=== PATIENT | female | born 1935 | race Caucasian/White ===

== ENCOUNTER 2019-11-03 01:03 | Inpatient (IN) | payer OTHER ==
--- NOTE | 2019-10-28 08:15 | NUR ---
MESSAGE AND UPDATE LEFT ON DR. DUPONT'S ANSWERING SERVICE REGARDING LAB RESULTS
[~2019-11-03] VITALS: Ht 167.6 cm; Wt 83.4 kg
[2019-11-03] VITALS (56 sets, daily range): BP systolic 95–134; BP diastolic 43–79
[2019-11-03] MEDS ORDERED: NOREPINEPHRINE 8 MG/250ML KIT 250 ML IV ONE (02:28)
[2019-11-03] MEDS ORDERED: SODIUM CHLORIDE 0.9% 500 ML IV ONE ×2 (02:30)
[2019-11-03] MEDS: NOREPINEPHRINE 8 MG/250ML KIT 250 ML IV SCH ×5 (02:30→22:52)
[2019-11-03 02:35] LABS: Basophils # (auto) 0.1 10 ^3/uL (0-0.2); Basophils % (auto) 0.4 % (0.0-2.0); Eosinophils # (auto) 0.1 10 ^3/uL (0-0.8); Eosinophils % (auto) 0.7 % (0.0-7.0); Hematocrit 37.3 % (36.0-46.0); Hemoglobin 11.6 g/dL (12.2-16.2); Lymphocytes # (auto) 3.8 10 ^3/uL (0.4-5.4); Lymphocytes % (auto) 21.9 % (10.0-50.0); Mean Corpuscular Hgb Conc. 31.2 g/dL (32.0-36.0); Mean Corpuscular Volume 93.1 fL (80.0-100.0); Monocytes # (auto) 0.8 10 ^3/uL (0-1.3); Monocytes % (auto) 4.5 % (0.0-12.0); Neutrophils # (auto) 12.7 10 ^3/uL (1.6-8.6); Neutrophils % (auto) 72.5 % (37.0-80.0); Nucleated Red Blood Cells % 0.2 %; Platelet Count (auto) 176 10^3/uL (140-450); Red Cell Distribution Width 14.7 % (11.8-14.3); White Blood Cell 17.5 10^3/uL (4.4-10.8)
[2019-11-03 02:38] LABS: Chloride 101 mmol/L (98-107); Lipase 75 U/L (73-393); Potassium 3.1 mmol/L (3.5-5.1); Sodium 135 mmol/L (136-145)
[2019-11-03 02:40] LABS: Albumin 2.6 g/dL (3.4-5.0); Amylase 29 U/L (25-115); Anion Gap 15 (5-15); BUN/Creatinine Ratio 11.1; Blood Urea Nitrogen 16 mg/dL (7-18); Calcium 8.3 mg/dL (8.5-10.1); Carbon Dioxide 19 mmol/L (21-32); GFR African American 44 mL/min; GFR Non-African American 37 mL/min; Glucose 345 mg/dL (74-106); Magnesium 2.5 mg/dL (1.6-2.6)
[2019-11-03 02:43] LABS: Alanine Aminotransferase 14 U/L (13-56); Alkaline Phosphatase 67 U/L (45-117); Aspartate Aminotransferase 17 U/L (15-37); Bilirubin, Total 0.7 mg/dL (0.2-1.0); Total Protein 6.2 g/dL (6.4-8.2)
[2019-11-03 02:54] LABS: INR 1.09 (0.9-1.15); Partial Thromboplastin Time 24.9 sec (23.64-32.05)
[2019-11-03] MEDS ORDERED: MORPHINE SULF INJ 2 MG/ML SYRINGE 1ML IV ONE ×2 (03:00→18:15)
[2019-11-03] MEDS ORDERED: dilTIAZem 25 MG/5 ML VIAL IV ONE (03:00)
[2019-11-03] MEDS ORDERED: ONDANSETRON HCL 4 MG/2 ML VIAL ONE (03:00)
[2019-11-03] MEDS: SODIUM CHLORIDE 0.9% 1,000 ML IV SCH ×5 (03:00→17:00)
[2019-11-03] MEDS ORDERED: dilTIAZem 120MG ER CAP PO ONE (03:00)
[2019-11-03] MEDS ORDERED: ONDANSETRON HCL 4 MG/2 ML VIAL IV ONE (03:00)
[2019-11-03] MEDS ORDERED: cefTRIAXone 1GM/50ML D5W 50 ML IV ONE (05:15)
[2019-11-03] MEDS: DOPamine 1600MCG/ML D5W 250 ML IV SCH ×2 (06:25→23:31)
[2019-11-03] MEDS ORDERED: PHENYLEPHRINE IV 250 ML IV ONE ×2 (06:43→06:45)
[2019-11-03] MEDS ORDERED: ACETAMINOPHEN 325 MG TAB PO PRN (06:45)
[2019-11-03] MEDS ORDERED: NITROGLYCERIN 0.4 MG SL TAB SL PRN (06:45)
[2019-11-03] MEDS ORDERED: ALBUMIN 5% 250 ML IV ONE (06:45)
[2019-11-03] MEDS ORDERED: ONDANSETRON HCL 4 MG/2 ML VIAL IV PRN (06:45)
[2019-11-03] MEDS ORDERED: MORPHINE SULF INJ 2 MG/ML SYRINGE 1ML IV PRN (06:45)
[2019-11-03] MEDS ORDERED: TEMAZEPAM 15 MG CAP PO PRN (06:45)
[2019-11-03] MEDS ORDERED: POTASSIUM CHL 20MEQ/100ML 100 ML IV ONE (06:45)
[2019-11-03] MEDS ORDERED: DEXTROSE (50%) 50ML SYRG IV PRN (06:45)
[2019-11-03] MEDS: InsuLIN REG 1unit/0.01ml Soln (100units/ml) SC SCH ×4 (07:00→22:00)
[2019-11-03] MEDS: ACCU-CHEK COMFORT CURVE STRIP VI SCH ×4 (07:00→22:00)
[2019-11-03] MEDS ORDERED: AMIODARONE HCL 150 MG in D5W 5% 100 ML IV ONE (07:15)
[2019-11-03] MEDS ORDERED: AMIODARONE 450mg/250ml AE 250 ML IV SCH (07:21)
[2019-11-03] MEDS: cefTRIAXone 1GM/50ML D5W 50 ML IV SCH ×2 (08:59→10:07)
--- NOTE | 2019-11-03 09:20 | NUR ---
Admit to [facility] admitted to [facility] via gurney on radiology technician, and portable 02. Patient transferred to bed, connected to unit monitoring and oxygen, and weighed by bed scale. Patient oriented to Marizol Huertas, primary RN, unit, room, bed, and unit policies regarding patient care and visiting hours. All questions and concerns addressed, patient verbalized understanding.Bed in low position, call light in reach. Patient note dot have 2 IV to the left hand and left forearm. Left forearm IV patient is complaining that it is hurting, IV hard to flush and painful for patient. Will discontinue IV and adolfo Alvarez for PICC line or central line. Unable to run Amiodarone drip at this time as it is not compatible with vasopressors.
[2019-11-03] MEDS ORDERED: APIXABAN 2.5 MG TAB PO SCH (10:00)
--- NOTE | 2019-11-03 10:00 | NUR ---
DR SORIA ON UNIT AND INFORMED THAT PATIENT HAS POOR IV ACCESS. PER MD PATIENT IS DR DUPONT PATIENT, DR SORIA SIGNED CONSENT AND INFORMED DR DUPONT OF PATIENT STATUS AND NEED FOR ACCESS, DR DUPONT AGREED TO PICC LINE PLACEMENT.
--- NOTE | 2019-11-03 10:15 | NUR ---
PHYSICIAN OFFICE NURSE AT BEDSIDE FOR BILATERAL VENOUS ULTRASOUND.
--- NOTE | 2019-11-03 11:06 | NUR ---
POP SINGER AT BEDSIDE.
--- NOTE | 2019-11-03 11:25 | NUR ---
DR DUPONT AT BEDSIDE AND MADE AWARE OF PATIENT STATUS AND NEED FOR PICC LINE PLACEMENT. MD ALSO MADE AWARE OF PATIENT POTASSIUM OF 3.1 AND ONLY GIVEN 20MEQ IVPB AT THIS TIME. MD CALLED DR GATICA TO INFORM OF PATIENT CONSULT. PER MD PLACING NEPHROLOGY CONSULT WELL. ALL ORDERS NOTED IN CHART.
[2019-11-03] MEDS ORDERED: POTASSIUM CHL 20 Meq TABLET PO ONE (12:00)
--- NOTE | 2019-11-03 12:00 | NUR ---
PICC LINE NURSE AT BEDSIDE.
[2019-11-03 12:07] LABS: Hemoglobin 9.6 g/dL (12.2-16.2)
[2019-11-03 12:08] LABS: Hematocrit 30.8 % (36.0-46.0); Mean Corpuscular Hemoglobin 28.6 pg (28.0-32.0); Mean Corpuscular Hgb Conc. 31.1 g/dL (32.0-36.0); Mean Corpuscular Volume 92.1 fL (80.0-100.0); Platelet Count (auto) 196 10^3/uL (140-450); Red Blood Cells 3.34 10^6/uL (4.0-5.20); Red Cell Distribution Width 14.3 % (11.8-14.3)
[2019-11-03 12:12] LABS: White Blood Cell 30.4 10^3/uL (4.4-10.8)
[2019-11-03 12:13] LABS: Basophils % (manual) 0 (0.0-2.0); Blast Cells 0; Eosinophils % (manual) 0 (0-7); Metamyelocytes % 0; Myelocytes % 0; Promyelocytes % 0; Reactive Lymphocytes 0
[2019-11-03 12:14] LABS: BUN/Creatinine Ratio 10.9; Calcium 7.5 mg/dL (8.5-10.1); Magnesium 2.4 mg/dL (1.6-2.6); Potassium 3.4 mmol/L (3.5-5.1)
[2019-11-03 12:14] LABS: Urine Bacteria FEW /hpf (None Seen); Urine Blood 3+ /uL (Negative); Urine Mucus FEW (None Seen); Urine Specific Gravity 1.023 (1.001-1.035); Urine WBC 84 /hpf (0 - 5); Urine WBC Clumps PRESENT /hpf (None Seen)
[2019-11-03 12:15] LABS: Urine Hyaline Cast FEW /lpf (0 - 2)
[2019-11-03 12:17] LABS: Bilirubin, Total 0.3 mg/dL (0.2-1.0); Total Protein 6.1 g/dL (6.4-8.2)
[2019-11-03] MEDS ORDERED: LIDOCAINE 1% (LOCAL ANESTH.) PF 5ml SDV ID ONE (12:30)
--- NOTE | 2019-11-03 12:35 | NUR ---
PICC line placement Patient educated on need for PICC line placement. All risks and benefits explained and all questions and concerns addressed prior to procedure. Noted past medical history, discussed with Dr Becerra which extremity to access. We both agreed on the right upper extremity d/t left sided pacemaker. 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 NKDA. INR and Plt counts within acceptable range. 5 fr PICC line inserted via right brachial vein using [employer] US and Tip Location System. Sterile technique with maximum barrier precautions utilized. Blood return obtained from each of the 3 lumens and each flushed easily with NS using proper technique. PICC secured with Stat-lock; biodisc and occlusive dressing applied. Stat portable chest x-ray obtained for PICC tip placement. *Baseline Arm Circumference 31 cm. Internal length 38 cm. External length 0. PICC lot #[id number] Note:
[2019-11-03 12:37] LABS: Lactic Acid w/Reflex 6.4 mmol/L (0.4-2.0)
--- NOTE | 2019-11-03 13:05 | NUR ---
Okay to use PICC line Xray completed. Okay to use PICC line. Marizol LOUIS notified.
[2019-11-03 13:14] LABS: Band Neutrophils % (manual) 7; Lymphocytes % (manual) 5 (10.0-50.0); Monocytes % (manual) 3 (0-12)
--- NOTE | 2019-11-03 13:30 | NUR ---
AMIODARONE DRIP AMIODARONE DRIP STARTED AT THE 1MG/HR ORDERED PER PROTOCOL. WILL DECREASE TO 0.5MG PER PROTOCOL AT 1930 DUE TO BEING UNABLE TO RUN SINCE PATIENT ARRIVAL FROM ER DUE TO NO IV ACCESS. DR DUPONT AWARE
--- NOTE | 2019-11-03 13:47 | NUR ---
HEAD START DIRECTOR AT BEDSIDE FOR CAROTID ULTRASOUND.
--- NOTE | 2019-11-03 14:47 | NUR ---
LEFT MESSAGE FOR DR DUPONT TO INFORM OF PATIENTS WBC OF 30.4, AWAITING CALL BACK.
--- NOTE | 2019-11-03 14:54 | NUR ---
SPOKE TO DR DUPONT ABOUT PATIENTS WBC OF 30.4, PER MD START PATIENT ON VANCOMYCIN PER PHARMACY AND GIVE 1 GM IVPB NOW. ALL ORDERS NOTED IN CHART.
--- NOTE | 2019-11-03 15:25 | NUR ---
PATIENT BELONGINGS FAMILY DROPPED OFF PATIENTS IPHONE AND TABLET WITH EDI ARCHITECT.
[2019-11-03] MEDS ORDERED: VANCOMYCIN PER PHARMACY 0 MG IV SCH (15:30)
[2019-11-03] MEDS ORDERED: VANCOMYCIN 1GM/250ML 250 ML IV ONE (15:30)
[2019-11-03] MEDS ORDERED: METO25TA93 PO (15:38)
[2019-11-03] MEDS ORDERED: ATOR10TA52 PO (15:38)
[2019-11-03] MEDS ORDERED: FURO1TAB31 PO (15:38)
[2019-11-03] MEDS ORDERED: APIX2.5T PO (15:38)
[2019-11-03] MEDS ORDERED: CHOL20007 PO (15:38)
[2019-11-03] MEDS ORDERED: CYAN100L PO (15:38)
[2019-11-03] MEDS ORDERED: FLUO-126 PO (15:38)
[2019-11-03] MEDS ORDERED: DIGO0.12 PO (15:38)
--- NOTE | 2019-11-03 15:49 | NUR ---
PAGED DR DUPONT FOR PATIENTS COMPLAINT OF PAIN 9/10 IN ABDOMEN. AWAITING CALL BACK.
--- NOTE | 2019-11-03 15:51 | NUR ---
DR PRIEST AT BEDSIDE TO ASSESS PATIENT AND DISCUSS PLAN OF CARE. MD MADE AWARE OF PATIENTS CURRENT FLUIDS AND DRIPS AND POOR URINE OUTPUT. MD ASSESSED PATIENT AND RECOMMENDED BLADDER SCAN. BLADDER SCAN COMPLETED AND THERE IS APPROXIMATELY 100-160ML IN BLADDER, MD MADE AWARE. MD ORDERED TO REPLACE CLAY CATHETER WITH LAGER ONE, 18F CLAY PLACED BY SLOANE LOUIS PATIENT TOLERATED WELL, BUT MINIMAL URINE DRAINAGE. PER MD OBTAIN ABDOMINAL CT. ALL ORDERS NOTED IN CHART.
--- NOTE | 2019-11-03 16:00 | NUR ---
SPOKE TO DR DUPONT AND INFORMED THAT DR PRIEST IS AT BEDSIDE AND ORDERING ABDOMINAL CT, ORDERED NORCO 5/325 Q4HR PRN FOR PAIN. ALL ORDERS NOTED IN CHART.
--- NOTE | 2019-11-03 16:40 | NUR ---
REPORT GIVEN TO SLOANE RN TO ASSUME CARE OF PATIENTS.
--- NOTE | 2019-11-03 16:45 | NUR ---
ASSESSMENT RECEIVED PATIENT'S REPORT FROM YAS LOUIS. PATIENT IS AWAKE ALERT AND ORIENTED. MOVES ALL EXTREMITIES. PUPILS ARE EQUAL AND REACTIVE. ABDOMEN IS DISTENDED.PATIENT SAID "I FEEL LIKE I NEED TO PEE". PATIENT IS OLIGURIC. YAN AWARE. CATHETER CHECKED FOR PATENCY. IT IS PATENT AND DRAINING WITH CLOUDY YELLOW URINE. WILL TAKE PATIENT CT ABDOMEN. PATIENT IS ON LEVOPHED 26 MCG/MIN AND AMIODARONE 1MG/MIN INFUSING THROUGH RT.UPPER PICC LINE.
--- NOTE | 2019-11-03 17:00 | NUR ---
PATIENT IS TAKEN FOR CT ABD/PELVIS .CONNECTED TO LIFE SCIENTIST AND OXYGEN.
--- NOTE | 2019-11-03 17:22 | NUR ---
PATIENT IS BACK FROM CT. VITAL SIGNS ARE STABLE.
[2019-11-03] MEDS ORDERED: HYDROcodone-ACET 5/325MG TAB ONE (17:36)
[2019-11-03] MEDS: PIPERACILLIN-TAZOB 2.25GM 50 ML IV SCH (17:59)
--- NOTE | 2019-11-03 18:05 | NUR ---
RECEIVED PHONE CALL FROM RONNIE SCHMIDT. SHE WANTS TO TALK TO . Addendum: 11/03/19 at 2136 by Farzad King RN RONNIE SEALS
[2019-11-03] MEDS ORDERED: MORPHINE SULF INJ 2 MG/ML SYRINGE 1ML ONE (18:09)
--- NOTE | 2019-11-03 18:10 | NUR ---
CALLED BACK. INFORMED THE REASON FOR CALL AND GAVE 'S NUMBER.
--- NOTE | 2019-11-03 18:15 | NUR ---
RECEIVED PHONE CALL FROM . MD ORDERED TO CONSULT STAT, TYPE AND CROSS MATCH 4 UNITS PRBC AND KEEP PATIENT NPO. 'S CELL NUMBER AND PATIENT'S GRAND SON CLARICE'S CELL NUMBER ARE GIVEN TO .
--- NOTE | 2019-11-03 18:25 | NUR ---
PAGED REGARDING CONSULT.
--- NOTE | 2019-11-03 18:35 | NUR ---
CALL BACK ORDERED TO DO STAT CBC, PT&PTT, GIVE 2 UNITS FFP, 1 PLATELET AND THEN REPEAT CBC AND PT&PTT. CALL MD WITH RESULTS.
[2019-11-03] MEDS: AMIODARONE 450mg/250ml AE 250 ML IV SCH ×2 (19:30→22:51)
--- NOTE | 2019-11-03 20:00 | NUR ---
RECIEVED PT AWAKE AND ALERT ON 2LNC, SAO2 97-98%, TACHYPNEIC 28-30, PT C/O OF SHOOTING TYPE PAIN IN HER ABDOMEN ABOUT "EVERY 5 MIN" ABD ROUND SOFT AND "TENDER" OFFERED PAIN MED FOR COMFORT, PT STATES "I DONT NEED ANYTHING RIGHT NOW" PT CALM, U/O LOW, RIHT UPPER ARM PICC LINE INFUSING LEVOPHED GTT AT 22MCG/MIN , LABS SENT FOR T&C CBC PTPTT, SEE INTERVENTIONS FOR HEAD TO TOE ASSESSMENT AND VITAL SIGNS
[2019-11-03 20:03] LABS: Basophils # (auto) 0.1 10 ^3/uL (0-0.2); Basophils % (auto) 0.4 % (0.0-2.0); Eosinophils # (auto) 0 10 ^3/uL (0-0.8); Monocytes # (auto) 1.4 10 ^3/uL (0-1.3); Red Cell Distribution Width 14.2 % (11.8-14.3)
[2019-11-03 20:04] LABS: Hematocrit 25.1 % (36.0-46.0); Lymphocytes # (auto) 1.2 10 ^3/uL (0.4-5.4); Lymphocytes % (auto) 5.4 % (10.0-50.0); Mean Corpuscular Hemoglobin 28.8 pg (28.0-32.0); Mean Corpuscular Hgb Conc. 31.7 g/dL (32.0-36.0); Mean Corpuscular Volume 90.8 fL (80.0-100.0); Monocytes % (auto) 6.5 % (0.0-12.0); Neutrophils # (auto) 19.3 10 ^3/uL (1.6-8.6); Neutrophils % (auto) 87.7 % (37.0-80.0); Platelet Count (auto) 174 10^3/uL (140-450); Red Blood Cells 2.77 10^6/uL (4.0-5.20)
[2019-11-03 20:11] LABS: INR 1.11 (0.9-1.15); Partial Thromboplastin Time 28.4 sec (23.64-32.05)
[2019-11-03] MEDS: SODIUM CHLOR 0.9% PF (SALINE LOCK) 10ML VIAL/SYR IV SCH (22:00)
--- NOTE | 2019-11-03 22:40 | NUR ---
1ST UNIT FFP (303ML) HUNG
--- NOTE | 2019-11-03 23:30 | NUR ---
2ND UNIT FFP (321ML) HUNG
[2019-11-04] VITALS (101 sets, daily range): BP systolic 74–139; BP diastolic 33–80
--- NOTE | 2019-11-04 00:50 | NUR ---
NORCO5/325 PO GIVEN FOR C/O HEADACHE AND ABDOMINAL SHOOTING PAINS SCALE #7
[2019-11-04] MEDS: HYDROcodone-ACET 5/325MG TAB PO PRN (00:52)
--- NOTE | 2019-11-04 01:30 | NUR ---
PT FELL ASLEEP
[2019-11-04] MEDS: SODIUM CHLORIDE 0.9% 1,000 ML IV SCH ×3 (02:45→22:45)
--- NOTE | 2019-11-04 02:45 | NUR ---
RECIEVED CALL FRM DR. DUPONT, ORDERS RECIEVED TO GIVE LASIX 20 MG IV X 1 , AND TO GIVE 1 PRBC IF AM HB IS < 8.O
[2019-11-04] MEDS ORDERED: FUROSEMIDE 20 MG/2 ML VIAL ONE (03:05)
[2019-11-04] MEDS ORDERED: FUROSEMIDE 20 MG/2 ML VIAL IV ONE (03:15)
--- NOTE | 2019-11-04 05:30 | NUR ---
PT HAD EPISODE OF 50 ML GREEN LIQ EMESIS. ZOFRAN 4MG IV WITH RELIEF
[2019-11-04] MEDS: PIPERACILLIN-TAZOB 2.25GM 50 ML IV SCH ×4 (06:40→20:34)
[2019-11-04 06:50] LABS: Basophils # (auto) 0.1 10 ^3/uL (0-0.2); Eosinophils # (auto) 0 10 ^3/uL (0-0.8); Monocytes # (auto) 1.4 10 ^3/uL (0-1.3)
[2019-11-04 06:52] LABS: Basophils % (auto) 0.6 % (0.0-2.0); Eosinophils % (auto) 0.1 % (0.0-7.0); Hematocrit 18.7 % (36.0-46.0); Lymphocytes # (auto) 0.8 10 ^3/uL (0.4-5.4); Lymphocytes % (auto) 4.4 % (10.0-50.0); Mean Corpuscular Hgb Conc. 32.2 g/dL (32.0-36.0); Mean Corpuscular Volume 90.1 fL (80.0-100.0); Monocytes % (auto) 8.3 % (0.0-12.0); Neutrophils # (auto) 14.7 10 ^3/uL (1.6-8.6); Neutrophils % (auto) 86.6 % (37.0-80.0); Platelet Count (auto) 199 10^3/uL (140-450); Red Blood Cells 2.08 10^6/uL (4.0-5.20); White Blood Cell 16.9 10^3/uL (4.4-10.8)
[2019-11-04] MEDS: InsuLIN REG 1unit/0.01ml Soln (100units/ml) SC SCH ×4 (07:00→21:47)
[2019-11-04 07:11] LABS: Potassium 3.6 mmol/L (3.5-5.1)
[2019-11-04 07:14] LABS: Albumin 2.7 g/dL (3.4-5.0); BUN/Creatinine Ratio 13.3; Calcium 6.6 mg/dL (8.5-10.1)
[2019-11-04 07:19] LABS: Bilirubin, Total 0.4 mg/dL (0.2-1.0); Total Protein 5.3 g/dL (6.4-8.2)
[2019-11-04] MEDS: NOREPINEPHRINE 8 MG/250ML KIT 250 ML IV SCH (07:31)
--- NOTE | 2019-11-04 07:45 | NUR ---
HB 6.0 0615 DRAW, 1 UNIT PRBC HUNG ORDERED, REPORT GIVEN TO [facility] NURSE ZORAIDA RN
[2019-11-04 07:50] LABS: INR 1.07 (0.9-1.15); Partial Thromboplastin Time 25.5 sec (23.64-32.05)
[2019-11-04] MEDS: ACCU-CHEK COMFORT CURVE STRIP VI SCH ×4 (09:18→21:47)
--- NOTE | 2019-11-04 09:24 | NUR ---
NOTIFIED DR. SMITH OF AM LABS S/P BLOOD TRANSFUSIONS AND PLT TRANSFUSION. UPDATED ON PT'S LATEST VITAL SIGNS WITH LEVOPHED AT 14 MCG/MIN. HR WITH A PACE MAKER. ASKED IF PT HAD BEEN EVALUATED BY EXERCISE SPECIALIST. I TOLD HIM SHE HAS A CARDIAC CONSULTATION BUT SHE STILL HAS NOT BEEN SEEN BY EXERCISE SPECIALIST. HE WANTS PT TO BE CLEARED FOR SURGERY RIGHT AWAY.
--- NOTE | 2019-11-04 09:30 | NUR ---
I CALLED DR. GATICA AND I NOTIFIED HIM OF STAT CONSULTATION NEED AND CLEARANCE NEEDED FOR SURGERY. MD. STATED HE NEEDED ECHO DONE STAT, SO HE COULD READ IT AND HE NEEDED TO HAVE PT ADDED TO HIS LIST. I ADDED CONSULT TO THE COMPUTER, SO MD CAN HAVE ACCESS TO THE PT. MD ALREADY AWARE OF CONSULTATION.
--- NOTE | 2019-11-04 10:30 | NUR ---
DR. RODRIGUEZ IN TO DO CARDIAC CLEARANCE FOR PT TO GO TO OR.
--- NOTE | 2019-11-04 10:35 | NUR ---
DR. SHAIKHCL IN TO SEE PT. HE SPOKE TO PT AND EXPLAINED TO PT WHAT TO EXPECT DURING SURGERY, POSSIBLE COMPLICATIONS. PT AGREED TO PROCEED WITH SURGERY. NEW ORDERS RECEIVED.
--- NOTE | 2019-11-04 11:45 | NUR ---
PT TAKEN TO SURGERY BY OR CREW.
[2019-11-04] MEDS: AMIODARONE 450mg/250ml AE 250 ML IV SCH ×2 (11:50→19:21)
[2019-11-04] MEDS ORDERED: SUCCINYLCHOLINE CHLORIDE 20 MG/ML 10ML VIAL IV ONE (11:58)
[2019-11-04] MEDS ORDERED: HYDROmorphone HCL 2 MG/ML VL ONE (11:59)
[2019-11-04] MEDS ORDERED: MIDAZOLAM HCL 1MG/1ML-2 ML VIAL ONE ×3 (11:59→13:19)
[2019-11-04] MEDS ORDERED: fentaNYL CITRATE 100 MCG/2 ML VL ONE (11:59)
[2019-11-04] MEDS ORDERED: fentaNYL CITRATE 5 ML ONE (11:59)
[2019-11-04] MEDS: SODIUM CHLOR 0.9% PF (SALINE LOCK) 10ML VIAL/SYR IV SCH ×2 (12:03→21:47)
[2019-11-04] MEDS ORDERED: ceFAZolin 1GM/50ML 50 ML IV ONE (12:07)
--- NOTE | 2019-11-04 12:10 | NUR ---
I CALLED PT'S GRAND SON JENIFFER TO UPDATE HIM ON PT GOING TO SURGERY SINCE PT DID NOT WANT TO TAKE PHONE CALLS FROM PT'S FAMILY BEFORE GOING TO SURGERY. HE SAID HE HAD JUST SPOKEN TO DR. SMITH ABOUT 15 MIN AGO TELLING HIM THAT HE WAS ABOUT TO TAKE HER BACK TO SURGERY.
[2019-11-04] MEDS ORDERED: PNEUMOCOCCAL VACC POLYS 25 MCG/0.5 ML VIAL IM ONE (12:15)
[2019-11-04] MEDS ORDERED: DexAMETHasone SOD PHOS 10MG/1ML VIAL INJ ONE (12:37)
[2019-11-04] MEDS ORDERED: MIDAZOLAM DRIP 50 mg/50mL 50 ML IV SCH (13:22)
--- NOTE | 2019-11-04 13:24 | NUR ---
PT CAME BACK FROM SURGERY S/P SPLENECTOMY PT NOW ON VENTILATOR, REMAINS PARALYZED FROM ANESTHESIA AND PARALYTICS THAT WERE USED DURING SURGERY. DR. YEPEZ WILL BE THE CONSULTING RATE ENGINEER WHOM HAPPENED TO BE AT BEDSIDE WHEN PT ARRIVED TO THE UNIT. ASSESSED PT AT THIS TIME AND RECEIVED REPORT FROM ANESTHESIOLOGIST AND GAVE US ORDERS FOR VENTILATOR MANAGEMENT.PT REMAINS ON LEVOPHED AND AMIODARONE GTT.
[2019-11-04] MEDS ORDERED: HYDROmorphone HCL 2 MG/ML VL IV PRN (13:30)
[2019-11-04] MEDS: MIDAZOLAM DRIP 50 mg/50mL 50 ML IV SCH ×2 (14:09→21:15)
[2019-11-04] MEDS ORDERED: fentaNYL Drip 2500mCg/250mlNS 250 ML IV ONE (14:14)
[2019-11-04 14:35] LABS: Hemoglobin 8.6 g/dL (12.2-16.2); Mean Corpuscular Hemoglobin 29.5 pg (28.0-32.0); Mean Corpuscular Hgb Conc. 33.1 g/dL (32.0-36.0); Mean Corpuscular Volume 89.2 fL (80.0-100.0); Platelet Count (auto) 175 10^3/uL (140-450); Red Blood Cells 2.92 10^6/uL (4.0-5.20); Red Cell Distribution Width 14.6 % (11.8-14.3); White Blood Cell 25.1 10^3/uL (4.4-10.8)
[2019-11-04 14:39] LABS: Band Neutrophils % (manual) 0; Basophils % (manual) 0 (0.0-2.0); Blast Cells 0; Eosinophils % (manual) 0 (0-7); Metamyelocytes % 0; Myelocytes % 0; Promyelocytes % 0; Reactive Lymphocytes 0
[2019-11-04] MEDS ORDERED: PROTHROMBIN COMPLEX CONCENTRAT 2,000 UNIT in STERILE WATER 80 ML IV ONE (15:00)
[2019-11-04 15:08] LABS: Lymphocytes % (manual) 1 (10.0-50.0); Monocytes % (manual) 1 (0-12)
[2019-11-04] MEDS: fentaNYL Drip 2500mCg/250mlNS 250 ML IV SCH (15:13)
[2019-11-04] MEDS: VANCOMYCIN 1GM/250ML 250 ML IV SCH (15:21)
[2019-11-04 15:29] LABS: Albumin 2.3 g/dL (3.4-5.0); Calcium 6.2 mg/dL (8.5-10.1); Potassium 3.5 mmol/L (3.5-5.1)
[2019-11-04] MEDS ORDERED: SODIUM BICARBONATE 8.4 % INJ 50ML VIAL IV ONE (15:30)
--- NOTE | 2019-11-04 15:30 | NUR ---
DR. PRIEST CALLED TO GET AN UPDATE ON PT'S CONDITION ESPECIALLY CURRENT URINE OUTPUT. I UPDATED MD ON PT'S CONDITION. IMPROVED UOP, IMPROVED BUN + CR, UOP ADEQUATE. MD WILL SEE PT TOMORROW.
[2019-11-04 15:34] LABS: BUN/Creatinine Ratio 13.8; Total Protein 4.8 g/dL (6.4-8.2)
[2019-11-04] MEDS: DOPamine 1600MCG/ML D5W 250 ML IV SCH (16:37)
--- NOTE | 2019-11-04 16:59 | NUR ---
I NOTIFIED DR. SMITH OF POST OP CBC RESULTS. WANTS PT TO RECEIVE 2 MORE UNITS OF PRBC'S.
[2019-11-04] MEDS ORDERED: ceFAZolin 1GM/50ML 50 ML IV SCH (18:00)
--- NOTE | 2019-11-04 18:06 | NUR ---
RT NOTE RECEIVED PT INTUBATED AND ON VENT V2 ON STATED SETTINGS. VENT IS PLUGGED INTO RED OUTLET. ALARMS ARE ON AND AUDIBLE AT NURSES STATION. AMBU BAG AT BEDSIDE AND CONNECTED TO O2. 7.5 ETT IS SECURED WITH ANCHORFAST AT 22CM TO THE ORAL RIGHT, MOVED TO THE CENTER. BILATERAL BS ARE CTA. PT WAS SUCTIONED FOR SCANT RETURN. RIGHT RADIAL ART LINE NOTED. PT APPEARS TO TOLERATE SETTINGS WELL. CONT ORDERED. POX 96% Addendum: 11/04/19 at 1911 by Dariana James RT Amended: Links added.
--- NOTE | 2019-11-04 20:40 | NUR ---
RT NOTE ROUTINE VENT CHECK DONE. PT INTUBATED AND ON VENT V2 ON STATED SETTINGS. VENT IS PLUGGED INTO RED OUTLET. ALARMS ARE ON AND AUDIBLE AT NURSES STATION. AMBU BAG AT BEDSIDE AND CONNECTED TO O2. 7.5 ETT IS SECURED WITH ANCHORFAST AT 22CM TO THE ORAL CENTER. RIGHT RADIAL ART LINE NOTED. PT APPEARS TO TOLERATE SETTINGS WELL. CONT ORDERED. POX 96% Addendum: 11/04/19 at 2056 by Dariana James RT Amended: Links added.
--- NOTE | 2019-11-04 22:35 | NUR ---
RT NOTE ROUTINE VENT CHECK DONE. PT INTUBATED AND ON VENT V2 ON STATED SETTINGS. VENT IS PLUGGED INTO RED OUTLET. ALARMS ARE ON AND AUDIBLE AT NURSES STATION. AMBU BAG AT BEDSIDE AND CONNECTED TO O2. 7.5 ETT IS SECURED WITH ANCHORFAST AT 22CM TO THE ORAL CENTER. RIGHT RADIAL ART LINE NOTED. PT APPEARS TO TOLERATE SETTINGS WELL. CONT ORDERED. POX 95% Addendum: 11/04/19 at 2242 by Dariana James RT Amended: Links added.
[2019-11-05] VITALS (104 sets, daily range): BP systolic 89–141; BP diastolic 39–78
--- NOTE | 2019-11-05 00:03 | NUR ---
RT NOTE ROUTINE VENT CHECK DONE. PT INTUBATED AND ON VENT V2 ON STATED SETTINGS. VENT IS PLUGGED INTO RED OUTLET. ALARMS ARE ON AND AUDIBLE AT NURSES STATION. AMBU BAG AT BEDSIDE AND CONNECTED TO O2. 7.5 ETT IS SECURED WITH ANCHORFAST AT 22CM TO THE ORAL CENTER. RIGHT RADIAL ART LINE NOTED. PT APPEARS TO TOLERATE SETTINGS WELL. PT WAS SUCTIONED FOR SCANT RETURN FROM ETT AND MODERATE RETURN ORALLY. CONT ORDERED. POX 95% Addendum: 11/05/19 at 0014 by Dariana James RT Amended: Links added.
[2019-11-05] MEDS: PIPERACILLIN-TAZOB 2.25GM 50 ML IV SCH ×3 (01:52→15:13)
[2019-11-05] MEDS: AMIODARONE 450mg/250ml AE 250 ML IV SCH ×2 (02:06→18:25)
--- NOTE | 2019-11-05 02:32 | NUR ---
RT NOTE ROUTINE VENT CHECK DONE. PT INTUBATED AND ON VENT V2 ON STATED SETTINGS. VENT IS PLUGGED INTO RED OUTLET. ALARMS ARE ON AND AUDIBLE AT NURSES STATION. AMBU BAG AT BEDSIDE AND CONNECTED TO O2. 7.5 ETT IS SECURED WITH ANCHORFAST AT 22CM TO THE ORAL CENTER. RIGHT RADIAL ART LINE NOTED. PT APPEARS TO TOLERATE SETTINGS WELL. CONT ORDERED. POX 93% Addendum: 11/05/19 at 0242 by Dariana James RT Amended: Links added.
--- NOTE | 2019-11-05 04:07 | NUR ---
RT NOTE ROUTINE VENT CHECK DONE. PT INTUBATED AND ON VENT V2 ON STATED SETTINGS. VENT IS PLUGGED INTO RED OUTLET. ALARMS ARE ON AND AUDIBLE AT NURSES STATION. AMBU BAG AT BEDSIDE AND CONNECTED TO O2. 7.5 ETT IS SECURED WITH ANCHORFAST AT 22CM TO THE ORAL CENTER. RIGHT RADIAL ART LINE NOTED. PT APPEARS TO TOLERATE SETTINGS WELL. PT SUCTIONED FOR SMALL RETURN. CONT ORDERED. POX 93% Addendum: 11/05/19 at 0516 by Dariana James RT Amended: Links added.
[2019-11-05 04:08] LABS: Basophils # (auto) 0.1 10 ^3/uL (0-0.2); Basophils % (auto) 0.7 % (0.0-2.0); Eosinophils # (auto) 0 10 ^3/uL (0-0.8); Hematocrit 30.3 % (36.0-46.0); Lymphocytes # (auto) 0.4 10 ^3/uL (0.4-5.4); Lymphocytes % (auto) 2.6 % (10.0-50.0); Mean Corpuscular Hemoglobin 29.2 pg (28.0-32.0); Mean Corpuscular Volume 88.5 fL (80.0-100.0); Monocytes # (auto) 0.7 10 ^3/uL (0-1.3); Monocytes % (auto) 4.2 % (0.0-12.0); Neutrophils # (auto) 15.7 10 ^3/uL (1.6-8.6); Neutrophils % (auto) 92.5 % (37.0-80.0); Nucleated Red Blood Cells % 0.3 %; Platelet Count (auto) 138 10^3/uL (140-450); Red Blood Cells 3.43 10^6/uL (4.0-5.20); Red Cell Distribution Width 14.6 % (11.8-14.3)
[2019-11-05] MEDS: SODIUM CHLORIDE 0.9% 1,000 ML IV SCH (04:26)
[2019-11-05] MEDS: NOREPINEPHRINE 8 MG/250ML KIT 250 ML IV SCH ×3 (04:34→21:54)
[2019-11-05 04:35] LABS: Potassium 3.2 mmol/L (3.5-5.1)
[2019-11-05 04:36] LABS: INR 1.03 (0.9-1.15); Partial Thromboplastin Time 25.2 sec (23.64-32.05)
[2019-11-05 04:41] LABS: Albumin 2.1 g/dL (3.4-5.0); Calcium 6.2 mg/dL (8.5-10.1); Magnesium 1.7 mg/dL (1.6-2.6)
[2019-11-05 04:45] LABS: Bilirubin, Total 0.7 mg/dL (0.2-1.0); Total Protein 4.6 g/dL (6.4-8.2)
[2019-11-05] MEDS: ACCU-CHEK COMFORT CURVE STRIP VI SCH ×4 (06:20→21:46)
[2019-11-05] MEDS: InsuLIN REG 1unit/0.01ml Soln (100units/ml) SC SCH ×4 (06:20→21:46)
--- NOTE | 2019-11-05 08:58 | NUR ---
RECEIVED CALL FOR DR YEPEZ - GIVEN CXR REPORT FROM THIS AM - STATES TO PROCEED WITH CPAP TRIAL RT NOTIFIED. VERSED STOPPED.
[2019-11-05] MEDS: DOPamine 1600MCG/ML D5W 250 ML IV SCH ×2 (09:43→21:53)
[2019-11-05] MEDS ORDERED: NOREPINEPHRINE 8 MG/250ML KIT 250 ML IV SCH (09:49)
[2019-11-05] MEDS ORDERED: SODIUM CHLORIDE 0.9% 1,000 ML IV ONE (10:00)
--- NOTE | 2019-11-05 10:15 | NUR ---
PT ABLE TO FOLLOW COMMANDS BUT NOT ALERT AND NOT OPENING EYES, STILL GROGGY AND LETHARGIC. NO SPONTANEOUS BREATHS, WHEN SPONTANEOUS BREATHING TRIAL IS INITIATED, PT STILL APNEIC. PT REMAINS ON AC MODE, WILL WAIT UNTIL PT IS MORE AWAKE/ALERT.
[2019-11-05] MEDS ORDERED: SODIUM BICARBONATE 8.4 % INJ 50ML VIAL IV ONE (10:30)
[2019-11-05] MEDS ORDERED: FUROSEMIDE 20 MG/2 ML VIAL IV ONE (10:30)
[2019-11-05] MEDS: PANTOPRAZOLE 40 MG/10 ML VIAL INJ IV SCH (10:39)
[2019-11-05] MEDS: SODIUM CHLOR 0.9% PF (SALINE LOCK) 10ML VIAL/SYR IV SCH ×2 (10:41→20:02)
--- NOTE | 2019-11-05 10:45 | NUR ---
PATIENT'S GRANDSON PHONES - GIVEN UPDATE ON POC - VERBALIZES UNDERSTANDING.
[2019-11-05] MEDS: VANCOMYCIN 1GM/250ML 250 ML IV SCH (11:00)
--- NOTE | 2019-11-05 11:00 | NUR ---
DR DUPONT VISITS AND EXAMINES PATIENT - NO NEW ORDERS RECEIVED.
--- NOTE | 2019-11-05 13:35 | NUR ---
PATIENT'S GRANDSON PHONES - UPDATED ON POC AND CURRENT CONDITION - VERBALIZES UNDERSANDING.
--- NOTE | 2019-11-05 13:40 | NUR ---
DR RORDIGUEZ VISITS AND EXAMINES PATIENT - ORDERS RECEIVED.
--- NOTE | 2019-11-05 13:40 | NUR ---
CPAP TRIAL PT AWAKE AND ABLE TO FOLLOW SIMPLE COMMANDS. INITIATED CPAP TRIAL ORDERED, PT TOLERATING WELL. BREATH SOUNDS CLEAR/DIM, SUCTIONED FOR SMALL THIN CLEAR SECRETIONS. ALARMS SET AND AUDIBLE. ABG AND WEANING PARAMETERS TO FOLLOW IN ONE HOUR. NOTIFIED RN OF CHANGES.
[2019-11-05] MEDS: fentaNYL Drip 2500mCg/250mlNS 250 ML IV SCH (14:58)
--- NOTE | 2019-11-05 15:05 | NUR ---
ENDED CPAP TRIAL CPAP ABG REVIEWED - RESPIRATORY ACIDOSIS, STILL WEAK WITH WEANING PARAMETERS NOTED: NIF -23, VC 590ML, RSBI 25, LEAK 50ML. ENDED SPONTANEOUS BREATHING TRIAL AND PLACED PT BACK ON AC MODE ON PREVIOUS SETTINGS. PT TOLERATING CHANGES WELL. NOTIFIED RN OF CHANGES. ALARMS VERIFIED AND AUDIBLE. WILL CONTINUE TO MONITOR.
[2019-11-05 15:53] LABS: Anion Gap 6 (5-15); BUN/Creatinine Ratio 13.7; Blood Urea Nitrogen 10 mg/dL (7-18); Carbon Dioxide 21 mmol/L (21-32); Chloride 114 mmol/L (98-107); GFR African American 97 mL/min; GFR Non-African American 80 mL/min; Glucose 206 mg/dL (74-106); Magnesium 1.5 mg/dL (1.6-2.6); Sodium 141 mmol/L (136-145)
[2019-11-05 16:14] LABS: Calcium 5.3 mg/dL (8.5-10.1); Potassium 2.7 mmol/L (3.5-5.1)
--- NOTE | 2019-11-05 16:15 | NUR ---
NOTIFIED PER LAB OF CRITICAL VALUES K+ 2.7 AND CA 5.3
[2019-11-05] MEDS: POTASSIUM CHL 20MEQ/100ML 100 ML IV SCH ×2 (16:16→18:22)
[2019-11-05] MEDS ORDERED: SOD CHL 0.9%/ KCL 20MEQ 1,000 ML IV SCH (16:45)
--- NOTE | 2019-11-05 16:45 | NUR ---
CALLED DR YEPEZ WITH RESULTS OF CPAP TRIAL. ORDERS RECEIVED FOR BASELINE AM ABG TOMORROW MORNING, AND CPAP TRIAL TOMORROW WHEN PT IS AWAKE/ALERT. NOTIFIED RN. WILL ENDORSE TO ONCOMING THERAPIST.
--- NOTE | 2019-11-05 16:45 | NUR ---
DR DUPONT RETURNS CALL - INFORMED OF CRITICAL LABS - ORDERS RECEIVED.
[2019-11-05] MEDS ORDERED: MAGNESIUM SULFATE 1GM/100ML 100 ML IV SCH (17:00)
[2019-11-05] MEDS: SOD CHL 0.9%/ KCL 20MEQ 1,000 ML IV SCH (17:17)
--- NOTE | 2019-11-05 18:21 | NUR ---
Respiratory note: RECEIVED PT ON VENT V2, VENT CONNECTED TO RED OUTLET AND O2 SOURCE. ALARMS ARE SET AND AUDIBLE. AMBU BAG AND MASK AT BEDSIDE. BS ARE FINE COURSE SXD VIA ETT FOR SCANT THIN CLEAR.GAG INTACT. ETT SECURED AT 22CM AT THE LIP VIA HOLISTER. RN CRISTHIAN AT BEDSIDE. RT NAME AND PAGER ASSIGNMENT WRITTEN ON PTS ROOM BOARD. WILL CONTINUE TO MONITOR Q2H.
[2019-11-05 19:38] LABS: Basophils # (auto) 0 10 ^3/uL (0-0.2); Basophils % (auto) 0.1 % (0.0-2.0); Eosinophils # (auto) 0 10 ^3/uL (0-0.8); Hematocrit 29.2 % (36.0-46.0); Hemoglobin 9.7 g/dL (12.2-16.2); Lymphocytes # (auto) 0.5 10 ^3/uL (0.4-5.4); Lymphocytes % (auto) 2.6 % (10.0-50.0); Mean Corpuscular Hemoglobin 28.9 pg (28.0-32.0); Mean Corpuscular Hgb Conc. 33.1 g/dL (32.0-36.0); Mean Corpuscular Volume 87.3 fL (80.0-100.0); Monocytes # (auto) 1.2 10 ^3/uL (0-1.3); Monocytes % (auto) 6.9 % (0.0-12.0); Neutrophils # (auto) 15.7 10 ^3/uL (1.6-8.6); Neutrophils % (auto) 90.4 % (37.0-80.0); Nucleated Red Blood Cells % 0.4 %; Platelet Count (auto) 72 10^3/uL (140-450); Red Blood Cells 3.35 10^6/uL (4.0-5.20); Red Cell Distribution Width 15.1 % (11.8-14.3); White Blood Cell 17.4 10^3/uL (4.4-10.8)
--- NOTE | 2019-11-05 20:00 | NUR ---
SHIFT OPENING NOTE RECEIVED PATIENT AWAKE, FOLLOWS COMMANDS AND IS APPROPRIATE ON A VENTILATOR WITH LIGHT SEDATION. VENT SETTINGS AC 14, TV 500, FI02 35, PEEP 5 ETT SIZE 7.5, 22 AT THE LIP. NG TUBE TO LEFT NARES TO LIS WITH GREENISH BROWN OUTPUT. ABDOMINAL DRESSINGS ARE CLEAN, DRY AND INTACT. ESTUARDO TUBE TO LEFT ABDOMEN WITH DARK RED OUTPUT. CLAY CATH DRAINING YELLOW URINE WITH SEDIMENT TO GRAVITY. LETICIA PICC INFUSING LEVOPHED AT 8, AMIO AT 0.5, FENT AT 25, NS 20KCL AT 100ML/H. RIGHT FEMORAL TLC SALINE LOCKED. PHYSICAL ASSESSMENT COMPLETED, SEE INTERVENTIONS. INSTRUCTED ON POC AND TO CALL FOR ASSIST NEEDED. BED IS IN THE LOWEST POSITION WITH SIDE RAILS UP X2, CALL LIGHT IS WITHIN REACH.
[2019-11-05] MEDS: PIPERACILLIN-TAZOB 3.375GM 100 ML IV SCH (20:01)
[2019-11-05] MEDS: MAGNESIUM SULFATE 1GM/100ML 100 ML IV SCH ×2 (20:02→21:47)
[2019-11-05 21:51] LABS: Hemoglobin 9.2 g/dL (12.2-16.2)
[2019-11-06] VITALS (103 sets, daily range): BP systolic 89–295; BP diastolic 33–285
[2019-11-06] MEDS: SOD CHL 0.9%/ KCL 20MEQ 1,000 ML IV SCH ×3 (03:00→23:00)
[2019-11-06] MEDS: PIPERACILLIN-TAZOB 3.375GM 100 ML IV SCH ×4 (03:29→20:24)
[2019-11-06 03:38] LABS: Basophils # (auto) 0 10 ^3/uL (0-0.2); Basophils % (auto) 0.3 % (0.0-2.0); Eosinophils # (auto) 0 10 ^3/uL (0-0.8); Hemoglobin 8.8 g/dL (12.2-16.2); Lymphocytes # (auto) 0.5 10 ^3/uL (0.4-5.4); Mean Corpuscular Hemoglobin 29.7 pg (28.0-32.0); Mean Corpuscular Hgb Conc. 33.7 g/dL (32.0-36.0); Mean Corpuscular Volume 88.2 fL (80.0-100.0); Monocytes # (auto) 1.2 10 ^3/uL (0-1.3); Monocytes % (auto) 7.4 % (0.0-12.0); Neutrophils % (auto) 89.3 % (37.0-80.0); Nucleated Red Blood Cells % 0.5 %; Platelet Count (auto) 156 10^3/uL (140-450); Red Blood Cells 2.95 10^6/uL (4.0-5.20); Red Cell Distribution Width 15.2 % (11.8-14.3); White Blood Cell 16.8 10^3/uL (4.4-10.8)
[2019-11-06 03:53] LABS: Calcium 6.5 mg/dL (8.5-10.1); Magnesium 2.4 mg/dL (1.6-2.6); Potassium 4.1 mmol/L (3.5-5.1)
[2019-11-06 03:55] LABS: BUN/Creatinine Ratio 13.8
--- NOTE | 2019-11-06 04:25 | NUR ---
MORNING HYGIENE CARE FULL BED BATH PERFORMED WITH WARM SOAPY WASH CLOTHES AND CHG WIPES. GOWN CHANGED. PARTIAL LINEN CHANGED. PATIENT REPOSITIONED FOR COMFORT. TOLERATED IT WELL.
[2019-11-06] MEDS: ACCU-CHEK COMFORT CURVE STRIP VI SCH ×4 (06:04→21:41)
[2019-11-06] MEDS: InsuLIN REG 1unit/0.01ml Soln (100units/ml) SC SCH ×4 (06:04→21:41)
--- NOTE | 2019-11-06 06:11 | NUR ---
Respiratory note: RECEIVED PATIENT ON V2 V200 VENT ORALLY INTUBATED WITH A 7.5 ETT SECURED VIA SIDRA AT THE 22CM MARKING AT THE LIP, AND MECHANICALLY VENTILATED WITH THE CHARTED SETTINGS. SPO2 95%, LUNG SOUNDS CLEAR/DIM T/O, NO SECRETIONS WHEN SUCTIONED. SKIN IS WARM/DRY TO THE TOUCH AND IS INTACT NEAR SIDRA SITE. THERE IS A NGT IN THE LEFT NARE, AND A PICC LINE PLACED IN THE RIGHT ARM. PITTING EDEMA NOTED IN BILATERAL UPPER AND LOWER EXTREMITIES. NO NEW CXR TO ASSESS. PATIENT IS AWAKE, ALERT, ORIENTED, AND FOLLOWING COMMANDS, AND IS SEDATED ON A FENTANYL DRIP. SHE IS RESTING COMFORTABLY AND TOLERATING VENT WELL, NO CHANGES MADE. VENT PLUGGED INTO RED OUTLET AND ALL ALARMS ARE SET AND AUDIBLE. WILL CONTINUE TO ASSESS PATIENT WELL VENTILATOR FUNCTION.
--- NOTE | 2019-11-06 07:15 | NUR ---
END OF SHIFT REPORT GIVEN AND CARE ENDORSED TO CRISTHIAN LOUIS.
--- NOTE | 2019-11-06 08:25 | NUR ---
CALL PLACED TO DR DUPONT RE: HGB 8.8 FROM 10.0 YESTERDAY.
--- NOTE | 2019-11-06 08:35 | NUR ---
Respiratory note: PATIENT PLACED ON CPAP FOR WEANING TRIAL AT THIS TIME. SHE IS TOLERATING WELL AND GIVING GREAT SPONTANEOUS EFFORT. WILL CONTINUE TO MONITOR CLOSELY WHILE ON CPAP. RN CRISTHIAN AT BEDSIDE AND AWARE OF VENT MODE CHANGE. VT: 482 RR: 16 HR: 83 SPO2: 95% BP: 138/69
--- NOTE | 2019-11-06 08:55 | NUR ---
PLACED SECOND CALL TO DR Alok RODRIGUES RE: HGRita 7.1 Addendum: 11/06/19 at 0909 by Theresa Castañeda RN ERROR WRONG CHART
--- NOTE | 2019-11-06 09:13 | NUR ---
DR SMITH VISITS - UPDATED ON PATIENT CONDITION - NO NEW ORDERS RECEIVED. PATIENT TOLERATING CPAP TRIAL WELL.
--- NOTE | 2019-11-06 09:50 | NUR ---
Respiratory note: PATIENT EXTUBATED AT THIS TIME POST POSITIVE CPAP TRIAL, WEANING PARAMETERS, AND ABG PER DR. YEPEZ'S VERBAL ORDER. PATIENT WAS PLACED ON 34% COOL AEROSOL WITH SPO2 MAINTAINING AT 94%, NO STRIDOR WAS HEARD, AND PATIENT HAD NO COMPLAINTS OF ANY SOB OR DIFF BREATHING. RN CRISTHIAN AWARE OF EXTUBATION. NIF: -22 FVC: 1030 RSBI: 45
--- NOTE | 2019-11-06 10:00 | NUR ---
RBC UNIT STARTED - WILL MONITOR FOR S/S TRANSFUSION REACTION.
--- NOTE | 2019-11-06 10:05 | NUR ---
DR YEPEZ VISITS AND EXAMINES PATIENT - NO NEW ORDERS RECEIVED.
--- NOTE | 2019-11-06 10:10 | NUR ---
DR RODRIGUEZ VISITS AND EXAMINES PATIENT - NO NEW ORDERS RECEIVED.
--- NOTE | 2019-11-06 10:15 | NUR ---
DR DUPONT VISITS AND EXAMINES PATIENT-NO NW ORDERS RECEIVED.
[2019-11-06] MEDS: SODIUM CHLOR 0.9% PF (SALINE LOCK) 10ML VIAL/SYR IV SCH ×2 (11:04→21:41)
[2019-11-06] MEDS: PANTOPRAZOLE 40 MG/10 ML VIAL INJ IV SCH (11:04)
[2019-11-06] MEDS: AMIODARONE 450mg/250ml AE 250 ML IV SCH (12:10)
--- NOTE | 2019-11-06 13:00 | NUR ---
PRBC'S TRANSFUSED WITHOUT S/S TRANSFUSION REACTION.
[2019-11-06] MEDS: VANCOMYCIN 1GM/250ML 250 ML IV SCH (13:41)
[2019-11-06] MEDS: MIDAZOLAM DRIP 50 mg/50mL 50 ML IV SCH (14:09)
[2019-11-06] MEDS: fentaNYL Drip 2500mCg/250mlNS 250 ML IV SCH (14:09)
--- NOTE | 2019-11-06 14:27 | NUR ---
Nutrition Assessment Notes Please refer to link for full assessment notes. Est Energy needs: [id number] kcals (17-20 kcal/kgBW) Est Protein needs: 86-94 gms/day (1.0-1.1 gm/kgBW) Will continue to monitor and reassess prn. Addendum: 11/06/19 at [address] Amended: Links added.
[2019-11-06 16:49] LABS: Hematocrit 29.6 % (36.0-46.0); Hemoglobin 9.7 g/dL (12.2-16.2)
[2019-11-06] MEDS: DOPamine 1600MCG/ML D5W 250 ML IV SCH (19:55)
--- NOTE | 2019-11-06 20:00 | NUR ---
OPENING NOTE PT IS ON 3L NC, SATURATING AT 96%, NO SIGN OF SOB. PT HAS OCCASIONAL NON-PRODUCTIVE WET CAUGHT, LUNG SOUNDS ARE CLEAR. PT AO X4. PT HAS RIGHT RADIAL A LINE, RIGHT PICC LINE, RIGHT FEMORAL CENTRAL LINE. ESTUARDO BULB DRAINING DARK MAROON BLOOD. MID ABDOMINAL INCISION IS INTACT, NO SIGN OF DRAINAGE, NOLAN INTACT, PAIN 0/10. CLAY DRAINING DOWN THE GRAVITY DARK YELLOW URINE, CLAY FREE OF KINKS. SEE IV SPREADSHEET FOR IV DRIPS. LEFT NG TUBE IS SET TO LOW INTERMITTENT SUCTIONING, DRAINING DARK GREEN GASTRIC SECRETIONS. PT TOLERATES ICE CHEAP.
[2019-11-06] MEDS: HYDROcodone-ACET 5/325MG TAB PO PRN (22:35)
--- NOTE | 2019-11-06 22:40 | NUR ---
PT REPORTS HEAD ACHE PT REPORTS DULL PAIN LOCALIZED TO LEFT FRONT TEMPORAL AREA. RATING 5/10 PT STATES "IT IS A STRESS HEAD ACHE" PAIN STARTED ABOUT 40 MIN AGO (5)
--- NOTE | 2019-11-06 23:36 | NUR ---
HEAD ACHE 0/10
[2019-11-07] VITALS (61 sets, daily range): BP systolic 88–136; BP diastolic 40–82
[2019-11-07] MEDS: PIPERACILLIN-TAZOB 3.375GM 100 ML IV SCH ×4 (01:36→20:28)
[2019-11-07] MEDS: AMIODARONE 450mg/250ml AE 250 ML IV SCH ×2 (01:36→16:44)
--- NOTE | 2019-11-07 01:58 | NUR ---
OFF LEVO PT WAS ON 2 MCG.
[2019-11-07] MEDS: SOD CHL 0.9%/ KCL 20MEQ 1,000 ML IV SCH ×2 (02:05→19:00)
[2019-11-07 03:33] LABS: Basophils # (auto) 0 10 ^3/uL (0-0.2); Basophils % (auto) 0.2 % (0.0-2.0); Eosinophils # (auto) 0 10 ^3/uL (0-0.8); Eosinophils % (auto) 0.1 % (0.0-7.0); Hemoglobin 9.9 g/dL (12.2-16.2); Lymphocytes # (auto) 1.1 10 ^3/uL (0.4-5.4); Lymphocytes % (auto) 6.3 % (10.0-50.0); Mean Corpuscular Hemoglobin 29.9 pg (28.0-32.0); Mean Corpuscular Hgb Conc. 32.9 g/dL (32.0-36.0); Mean Corpuscular Volume 90.9 fL (80.0-100.0); Monocytes # (auto) 1.6 10 ^3/uL (0-1.3); Monocytes % (auto) 9.5 % (0.0-12.0); Neutrophils # (auto) 14.1 10 ^3/uL (1.6-8.6); Neutrophils % (auto) 83.9 % (37.0-80.0); Nucleated Red Blood Cells % 2.1 %; Platelet Count (auto) 217 10^3/uL (140-450); White Blood Cell 16.8 10^3/uL (4.4-10.8)
[2019-11-07 03:52] LABS: Partial Thromboplastin Time 26.4 sec (23.64-32.05); Potassium 3.9 mmol/L (3.5-5.1)
--- NOTE | 2019-11-07 03:56 | NUR ---
EDUCATED ON HOW TO USE INCENTIVE SPIROMETER INSPIRED VOLUME 260 ML NEEDS EDUCATIONAL REINFORCEMENT
[2019-11-07 03:57] LABS: Albumin 2.1 g/dL (3.4-5.0); BUN/Creatinine Ratio 18.3; Magnesium 2.4 mg/dL (1.6-2.6)
[2019-11-07 04:00] LABS: Bilirubin, Total 0.6 mg/dL (0.2-1.0); Total Protein 4.8 g/dL (6.4-8.2)
--- NOTE | 2019-11-07 04:06 | NUR ---
APPLIED TWO OPTIFOAM DRESSINGS TO LEFT ARM TWO SKIN TEARS, SEROSANGUINEOUS DRAINAGE, NO ODOR. PT TOLERATED CHANGE WELL. PT STATED SKIN TEARS RESULTED FROM HER DOG JUMPING ONTO HER ARM
[2019-11-07] MEDS: HYDROcodone-ACET 5/325MG TAB PO PRN (05:51)
[2019-11-07] MEDS: ACCU-CHEK COMFORT CURVE STRIP VI SCH ×4 (06:21→22:10)
[2019-11-07] MEDS: InsuLIN REG 1unit/0.01ml Soln (100units/ml) SC SCH ×4 (06:21→22:00)
--- NOTE | 2019-11-07 07:30 | NUR ---
RECEIVED PATIENT SITTING UP IN THE BED, A/O TIMES 4, O2 AT 3L BY N/C, AMIODARONE AT 0.5MG, NS WITH 20MEQ KCL AT 100ML/HR BOTH INFUSING BY THE IV PUMP INTO THE LETICIA PICC LINE, CLAY TO GRAVITY, NGT TO LIS, TLC TO THE RT FEMORAL ARTERY, LYLE TO THE RT RADIAL, INCISION WITH NOLAN TO THE MEDIAL ABD DRY AND INTACT, ESTUARDO TO THE ABD WITH SANGUINEOUS DRAINAGE,
[2019-11-07] MEDS: VANCOMYCIN 1GM/250ML 250 ML IV SCH (08:04)
--- NOTE | 2019-11-07 08:30 | NUR ---
AWARE THAT SHE IS NOT ABLE TO EAT BREAKFAST BUT CAN HAVE ICE CHIPS
--- NOTE | 2019-11-07 09:00 | NUR ---
DR RODRIGUEZ IN TO SEE THE PATIENT
[2019-11-07] MEDS: SODIUM CHLOR 0.9% PF (SALINE LOCK) 10ML VIAL/SYR IV SCH ×2 (09:54→22:10)
[2019-11-07] MEDS: PANTOPRAZOLE 40 MG/10 ML VIAL INJ IV SCH (09:54)
--- NOTE | 2019-11-07 09:55 | NUR ---
EXPLAIN MEDICATIONS TO THE PATIENT REGARDING THE DOSAGE, USAGE, AND THE SIDE EFFECTS, VERBALIZED HE UNDERSTOOD AND MEDS GIVEN ORDERED
--- NOTE | 2019-11-07 10:45 | NUR ---
DR YEPEZ INTO SEE THE PATIENT
--- NOTE | 2019-11-07 10:50 | NUR ---
USING THE IS ONLY GETTING ABOUT 250ML, STATES SHE WILL CONTINUE AND SEE IF IS GET BETTER, EXPRESS TO HER TO TRY EVERY HOUR NOT CONTINUOUS
--- NOTE | 2019-11-07 11:36 | NUR ---
TALKING TO HER GRANDSON ON THE PHONE
--- NOTE | 2019-11-07 12:08 | NUR ---
DR DUPONT IN TO SEE THE PATIENT AND STATED TO DC THE A LINE AND THE TLC, AND DOWN
--- NOTE | 2019-11-07 12:10 | NUR ---
PAGED DR SMITH AND LEFT A MESSAGE PER DR DUPONT ASKING IF WE COULD TAKE OUT THE NGT
--- NOTE | 2019-11-07 12:35 | NUR ---
REMOVED THE A LINE AND THE TLC BOTH INTACT AND PRESSURE HELD FOR 5MINUTES TO BOTH AND DRESSING APPLIED
--- NOTE | 2019-11-07 13:25 | NUR ---
PATIENT HAD A LIQUID BM WITH SMALL CHUNKS OF STOOL
--- NOTE | 2019-11-07 13:40 | NUR ---
MEDICATED FOR PAIN WITH TYLENOL AT 5/10
--- NOTE | 2019-11-07 14:30 | NUR ---
PATIENT CLEANED, PATIENT HAD SMALL LIQUID BM
--- NOTE | 2019-11-07 15:29 | NUR ---
ORDERS WRITTEN FOR TRANSFER TO [facility]
--- NOTE | 2019-11-07 16:33 | NUR ---
SITTING UP IN BED, WATCHNG TV,
--- NOTE | 2019-11-07 16:50 | NUR ---
RECEIVED CALL FROM DR DEL REAL EXPRESS TO HIM THAT THE PATIENT HAD A BM AND STATED THAT WE COULD D/C THE NGT
--- NOTE | 2019-11-07 17:00 | NUR ---
NGT DC/ED
--- NOTE | 2019-11-07 18:20 | NUR ---
PATIENT SITTING UP IN THE BED, WITH EYES CLOSED NO COMPLAINTS, AMIODARONE AT 0.5MG/HR AND NS WITH 20MEG OF POTASSIUM AT 100ML/HR BOTH INFUSING INTO THE LETICIA PICC LINE BY THE IV PUMP, DRESSING TO THE ABD DRY AND INTACT, O2 AT 3L BY N/C, ESTUARDO TO THE ABD, STILL DRAINING SANGUINOUS FLUID, PATIENT CAN HAVE A CLEAR LIQUID DIET FOR DINNER, WILL CONTINUE TO MONITOR AND GIVE REPORT TO THE NEXT SHIFT
[2019-11-07] MEDS: ACETYLCYSTEINE 20%(200MG/ML) SOL 4ML NEB SCH (18:53)
[2019-11-07] MEDS: LEVALBUTEROL HCL 1.25 MG/3 ML NEB NEB PRN (18:53)
--- NOTE | 2019-11-07 22:40 | NUR ---
CARES PT DESATURATING DURING TURNING AND BED LINEN CHANGE. PT HAD SMALL BOWEL MOVEMENT.
[2019-11-08] VITALS (10 sets, daily range): BP systolic 103–150; BP diastolic 47–85
[2019-11-08] MEDS: LEVALBUTEROL HCL 1.25 MG/3 ML NEB NEB PRN ×4 (00:14→19:48)
[2019-11-08] MEDS: ACETYLCYSTEINE 20%(200MG/ML) SOL 4ML NEB SCH ×4 (00:15→19:48)
[2019-11-08] MEDS: SOD CHL 0.9%/ KCL 20MEQ 1,000 ML IV SCH ×2 (01:44→12:17)
[2019-11-08 03:37] LABS: Basophils # (auto) 0 10 ^3/uL (0-0.2); Basophils % (auto) 0.3 % (0.0-2.0); Eosinophils # (auto) 0.1 10 ^3/uL (0-0.8); Eosinophils % (auto) 1.1 % (0.0-7.0); Hematocrit 29.6 % (36.0-46.0); Hemoglobin 9.8 g/dL (12.2-16.2); Lymphocytes # (auto) 0.8 10 ^3/uL (0.4-5.4); Lymphocytes % (auto) 6.6 % (10.0-50.0); Mean Corpuscular Hemoglobin 30.1 pg (28.0-32.0); Mean Corpuscular Hgb Conc. 33.1 g/dL (32.0-36.0); Mean Corpuscular Volume 90.8 fL (80.0-100.0); Monocytes # (auto) 1.2 10 ^3/uL (0-1.3); Monocytes % (auto) 9.6 % (0.0-12.0); Neutrophils # (auto) 10.6 10 ^3/uL (1.6-8.6); Neutrophils % (auto) 82.4 % (37.0-80.0); Platelet Count (auto) 231 10^3/uL (140-450); Red Blood Cells 3.27 10^6/uL (4.0-5.20); Red Cell Distribution Width 15.3 % (11.8-14.3); White Blood Cell 12.9 10^3/uL (4.4-10.8)
[2019-11-08 03:41] LABS: INR 1.01 (0.9-1.15); Partial Thromboplastin Time 25.9 sec (23.64-32.05)
[2019-11-08 03:45] LABS: BUN/Creatinine Ratio 15.9; Calcium 7.7 mg/dL (8.5-10.1); Magnesium 2.1 mg/dL (1.6-2.6); Potassium 3.7 mmol/L (3.5-5.1)
[2019-11-08] MEDS: VANCOMYCIN 1GM/250ML 250 ML IV SCH ×2 (05:31→20:43)
[2019-11-08] MEDS: PIPERACILLIN-TAZOB 3.375GM 100 ML IV SCH ×4 (05:32→20:44)
[2019-11-08] MEDS: InsuLIN REG 1unit/0.01ml Soln (100units/ml) SC SCH ×4 (06:05→22:00)
[2019-11-08] MEDS: ACCU-CHEK COMFORT CURVE STRIP VI SCH ×4 (06:05→22:19)
[2019-11-08] MEDS ORDERED: FLUCONAZOLE 200MG/100ML 100 ML IV SCH (10:00)
[2019-11-08] MEDS: PANTOPRAZOLE 40 MG/10 ML VIAL INJ IV SCH (10:30)
[2019-11-08] MEDS: SODIUM CHLOR 0.9% PF (SALINE LOCK) 10ML VIAL/SYR IV SCH ×2 (10:30→22:16)
[2019-11-08] MEDS: FLUCONAZOLE 200MG/100ML 100 ML IV SCH ×2 (10:30→12:16)
[2019-11-08] MEDS: AMIODARONE 450mg/250ml AE 250 ML IV SCH (10:46)
--- NOTE | 2019-11-08 13:43 | NUR ---
PAGED FOR ORDERS.
--- NOTE | 2019-11-08 14:05 | NUR ---
Nutrition Followup Notes Pt wt is 92.6 kg. Pt was awake, alert and eating when rounded this morning. Pt states she is feeling better, trying to eat more. Pt is with a Clear Liquid Diet, appetite is poor aeb 15% PO intake per RN doc. Pt with no distress. Encouraged pt to increase her PO intake as she can tolerate it. Will continue to monitor PO status, skin status, pertinent labs and weight trends. Will f/u in 2-3 days. Est Energy needs: 4845-9589 kcals (17-20 kcal/kgBW) Est Protein needs: 86-94 gms/day (1.0-1.1 gm/kgBW) Will continue to monitor and reassess prn. LABS: CL 109 H, CA 7.7 L, ALB 2.1 L GI: Pt had 3 BM on 11/07 per RN doc BS: 14 mod risk Please refer to wound assessment report for full details. PES: 1) Increased nutrient needs r/t pt with no PO intake aeb pt NPO pending swallow eval 2) Obesity r/t energy intake in excess of energy needs aeb 145% IBW and BMI of 30.5 kg/m2 3) Altered nutrition related lab values r/t current medical condition hyperchloremia, hyperglycemia, hypocalcemia, severe hypoalbuminemia Comments Will continue to monitor PO status, skin status, pertinent labs and weight trends. Will f/u in 3-5 days. 1) Continue to closely monitor pt NPO status 2) Gradually advance pt to oral Cardiac 2gNa,lowfat,lowphos diet when medically feasible and as tolerated 3) If albumin continues trending down, consider Prostat 1 pkt BID 4) Continue current plan of care
--- NOTE | 2019-11-08 15:02 | NUR ---
MD-SECOND PAGE FOR ORDERS.
[2019-11-08 15:22] LABS: Hematocrit 29.4 % (36.0-46.0); Hemoglobin 9.6 g/dL (12.2-16.2)
--- NOTE | 2019-11-08 15:45 | NUR ---
SILK SCREEN PAINTER PAGED REGARDING MEDICATION ORDER.
[2019-11-08] MEDS ORDERED: AMIODARONE HCL 200 MG TAB PO ONE ×2 (16:45→17:15)
--- NOTE | 2019-11-08 16:58 | NUR ---
per pharmacist wants iv amiodarone stopped now because pt transferring to PO amiodarone.
--- NOTE | 2019-11-08 17:05 | NUR ---
MD MESSAGE PER MD DUPONT PT CAN GET TRANSFERRED TO TELE AFTER 4 HRS WHEN IV AMIODARONE SWITCHED TO PO.
--- NOTE | 2019-11-08 19:20 | NUR ---
RECEIVED REPORT FROM DAY SHIFT MISSY MENDOZA AND ASSUMED CARE OF PT.
--- NOTE | 2019-11-08 19:48 | NUR ---
ENDORSED CARE TO NOC RN. PT WATCHING TV. NO DISTRESS NOTED. CALL LIGHT WITHIN REACH.
--- NOTE | 2019-11-08 19:53 | NUR ---
BM PT HAD SMALL LOOSE STOOL. MELIDA CARE DONE AND CLEANED APPROPRIATELY.
--- NOTE | 2019-11-08 19:55 | NUR ---
ESTUARDO DRAINED EMPTIED AT THIS TIME 50 ML OF SANGUINEOUS DRAINAGE NOTED. DRAIN COMPRESSED AND FUNCTIONING APPROPRIATELY.
--- NOTE | 2019-11-08 20:11 | NUR ---
REPORT GIVEN TO TELE NURSE REYNA BY MISSY MENDOZA.
--- NOTE | 2019-11-08 20:20 | NUR ---
RECEIVE PT FROM NICOLETTE AT THIS TIME PT A0X4, NO S/S OF DISTRESS OR SOB
--- NOTE | 2019-11-08 20:56 | NUR ---
PT TRANSFERRED TO TELEMETRY UNIT ROOM 246A WITH PORTABLE O2 IN BED. CHART GIVEN TO ELECTRON BEAM PHOTO MASK TECHNICIAN. Addendum: 11/08/19 at 2312 by PARAG LOPEZ RN RN ALL PT BELONGINGS WITH PT AND PLACED IN BEDSIDE TABLE.
[2019-11-08] MEDS: AMIODARONE HCL 200 MG TAB PO SCH (22:16)
--- NOTE | 2019-11-08 22:45 | NUR ---
PT DRAINED EMPTIED AT THIS TIME 40 ML OF SANGUINEOUS DRAINAGE NOTED. DRAIN COMPRESSED AND FUNCTIONING APPROPRIATELY.
[2019-11-09] MEDS: ACETYLCYSTEINE 20%(200MG/ML) SOL 4ML NEB SCH ×4 (00:39→18:19)
[2019-11-09] MEDS: LEVALBUTEROL HCL 1.25 MG/3 ML NEB NEB PRN ×4 (00:39→18:19)
[2019-11-09] MEDS: SOD CHL 0.9%/ KCL 20MEQ 1,000 ML IV SCH ×3 (01:17→20:41)
[2019-11-09] MEDS: PIPERACILLIN-TAZOB 3.375GM 100 ML IV SCH ×4 (02:18→20:35)
[2019-11-09 05:00] VITALS: BP 123/59
--- NOTE | 2019-11-09 05:07 | NUR ---
PT DRAINED EMPTIED AT THIS TIME 80 ML OF SANGUINEOUS DRAINAGE NOTED. DRAIN COMPRESSED AND FUNCTIONING APPROPRIATELY.
[2019-11-09 05:51] LABS: Basophils # (auto) 0 10 ^3/uL (0-0.2); Basophils % (auto) 0.2 % (0.0-2.0); Eosinophils # (auto) 0.2 10 ^3/uL (0-0.8); Eosinophils % (auto) 1.8 % (0.0-7.0); Hematocrit 29.7 % (36.0-46.0); Hemoglobin 9.9 g/dL (12.2-16.2); Lymphocytes # (auto) 0.7 10 ^3/uL (0.4-5.4); Lymphocytes % (auto) 5.2 % (10.0-50.0); Mean Corpuscular Hemoglobin 30.4 pg (28.0-32.0); Mean Corpuscular Hgb Conc. 33.2 g/dL (32.0-36.0); Mean Corpuscular Volume 91.8 fL (80.0-100.0); Monocytes # (auto) 1.2 10 ^3/uL (0-1.3); Monocytes % (auto) 9.8 % (0.0-12.0); Neutrophils # (auto) 10.5 10 ^3/uL (1.6-8.6); Nucleated Red Blood Cells % 2.9 %; Platelet Count (auto) 237 10^3/uL (140-450); Red Blood Cells 3.24 10^6/uL (4.0-5.20); White Blood Cell 12.7 10^3/uL (4.4-10.8)
[2019-11-09 06:12] LABS: BUN/Creatinine Ratio 8.9; Calcium 7.5 mg/dL (8.5-10.1); Potassium 3.7 mmol/L (3.5-5.1)
[2019-11-09] MEDS: ACCU-CHEK COMFORT CURVE STRIP VI SCH ×4 (06:21→22:49)
[2019-11-09] MEDS: InsuLIN REG 1unit/0.01ml Soln (100units/ml) SC SCH ×4 (06:21→22:00)
--- NOTE | 2019-11-09 07:05 | NUR ---
OPENING NOTE Assumed care of patient at 0700. Patient exhibiting no signs of respiratory distress at this time. Patient showing no sings of pain at this time. Bed locked in lowest position, side rails up x 3, HOB elevated at least 30 degrees and call light within reach. Will continue to monitor.
[2019-11-09 08:27] VITALS: BP 135/78
[2019-11-09] MEDS: AMIODARONE HCL 200 MG TAB PO SCH ×2 (09:50→22:49)
[2019-11-09] MEDS: PANTOPRAZOLE 40 MG/10 ML VIAL INJ IV SCH (09:50)
[2019-11-09] MEDS: FLUCONAZOLE 200MG/100ML 100 ML IV SCH ×2 (09:52→11:24)
[2019-11-09] MEDS: SODIUM CHLOR 0.9% PF (SALINE LOCK) 10ML VIAL/SYR IV SCH ×2 (10:20→22:48)
[2019-11-09 13:12] VITALS: BP 137/68
--- NOTE | 2019-11-09 14:36 | NUR ---
ESTUARDO DRAINED EMPTIED AT THIS TIME 140 ML OF SANGUINEOUS DRAINAGE NOTED. DRAIN COMPRESSED AND FUNCTIONING APPROPRIATELY.
[2019-11-09 16:37] VITALS: BP 143/73
--- NOTE | 2019-11-09 19:10 | NUR ---
Opening Shift Note Assumed care of patient, awake and alert. No S/S of distress/SOB or pain. BED IS IN THE LOWEST POSITION, SIDE RAILS UP X2 CALL LIGHT WITH IN REACH.Instructed on POC and to call for assist PRN, will continue to monitor for changes Q1hr and PRN .
--- NOTE | 2019-11-09 20:20 | NUR ---
CLARICE ALVARADO UPDATED ON PT CARE AFTER CONFIRMING PASSWORD
[2019-11-09 21:21] LABS: Hematocrit 32.8 % (36.0-46.0); Hemoglobin 10.7 g/dL (12.2-16.2)
[2019-11-09 22:07] VITALS: BP 135/70
[2019-11-10] MEDS: LEVALBUTEROL HCL 1.25 MG/3 ML NEB NEB PRN ×4 (00:10→18:51)
[2019-11-10] MEDS: ACETYLCYSTEINE 20%(200MG/ML) SOL 4ML NEB SCH ×3 (00:10→11:46)
[2019-11-10] MEDS: PIPERACILLIN-TAZOB 3.375GM 100 ML IV SCH ×2 (01:56→09:08)
[2019-11-10 05:07] VITALS: BP 143/86
[2019-11-10] MEDS: InsuLIN REG 1unit/0.01ml Soln (100units/ml) SC SCH (05:56)
[2019-11-10] MEDS: ACCU-CHEK COMFORT CURVE STRIP VI SCH (05:56)
[2019-11-10] MEDS: SOD CHL 0.9%/ KCL 20MEQ 1,000 ML IV SCH (06:05)
[2019-11-10 06:10] LABS: Basophils # (auto) 0 10 ^3/uL (0-0.2); Basophils % (auto) 0.1 % (0.0-2.0); Eosinophils # (auto) 0.4 10 ^3/uL (0-0.8); Eosinophils % (auto) 3.4 % (0.0-7.0); Hematocrit 30.5 % (36.0-46.0); Hemoglobin 10.2 g/dL (12.2-16.2); Lymphocytes # (auto) 0.6 10 ^3/uL (0.4-5.4); Mean Corpuscular Hemoglobin 30.7 pg (28.0-32.0); Mean Corpuscular Hgb Conc. 33.5 g/dL (32.0-36.0); Mean Corpuscular Volume 91.6 fL (80.0-100.0); Monocytes # (auto) 1.1 10 ^3/uL (0-1.3); Neutrophils # (auto) 8.5 10 ^3/uL (1.6-8.6); Neutrophils % (auto) 80.5 % (37.0-80.0); Nucleated Red Blood Cells % 1.1 %; Platelet Count (auto) 247 10^3/uL (140-450); Red Blood Cells 3.33 10^6/uL (4.0-5.20); Red Cell Distribution Width 15.2 % (11.8-14.3); White Blood Cell 10.5 10^3/uL (4.4-10.8)
[2019-11-10 06:36] LABS: Potassium 4.1 mmol/L (3.5-5.1)
[2019-11-10 06:41] LABS: Calcium 7.7 mg/dL (8.5-10.1); Magnesium 1.8 mg/dL (1.6-2.6)
--- NOTE | 2019-11-10 07:30 | NUR ---
ESTUARDO DRAINED EMPTIED AT THIS TIME 70 ML OF SANGUINEOUS DRAINAGE NOTED. DRAIN COMPRESSED AND FUNCTIONING APPROPRIATELY.
--- NOTE | 2019-11-10 07:30 | NUR ---
Opening Shift Note Assumed care of patient, awake and alert. No S/S of distress/SOB or pain. Instructed on POC and to call for assist PRN, will continue to monitor for changes Q1hr and PRN. Bed locked and in lowest position, call light within reach.
--- NOTE | 2019-11-10 07:35 | NUR ---
END OF SHIFT NOTES ENDORSE PT CARE TO DAY SHIFT RN PT A0X4,NO S/S OF DISTRESS OR SOB
[2019-11-10] MEDS: PANTOPRAZOLE 40 MG/10 ML VIAL INJ IV SCH (09:09)
[2019-11-10 09:11] VITALS: BP 140/93
[2019-11-10] MEDS: FLUCONAZOLE 200MG/100ML 100 ML IV SCH ×2 (09:14→11:24)
[2019-11-10] MEDS: AMIODARONE HCL 200 MG TAB PO SCH ×2 (09:27→21:34)
[2019-11-10] MEDS: SODIUM CHLOR 0.9% PF (SALINE LOCK) 10ML VIAL/SYR IV SCH ×2 (10:00→21:34)
--- NOTE | 2019-11-10 10:46 | NUR ---
ESTUARDO DRAINED EMPTIED AT THIS TIME 90 ML OF SANGUINEOUS DRAINAGE NOTED. DRAIN COMPRESSED AND FUNCTIONING APPROPRIATELY
--- NOTE | 2019-11-10 11:56 | NUR ---
BOOK TRIMMER SPOKE WITH PT FOR INITIAL ASSESSMENT. PT IS A 84 YR OLD FEMALE ADMITTED FOR [facility]. SHE HAS A HX OF AFIB, POST CABG, PACEMAKER, HTN. PT WAS INDEPENDENT PRIOR TO ADMISSION, NO DME AT HOME. PT CONTINUES TO DRIVE HERSELF TO HER PCP (DR. PAREDES) AND CARDIO (DR. RIDER). PT WAS A/A/OX4, RECEPTIVE TO SS VISIT, EUTHYMIC MOOD WITH CONGRUENT AFFECT. PT STATES THAT SHE RESIDES WITH HER GRANDSON VENUS MILLAN [phone]. HE IS SUPPORTIVE AND ABLE TO ASSIST HER AT HOME NEEDED. HER GREAT GRANDSON ALSO VISITS OFTEN AND CAN HELP HER AT HOME. PT HAS AN AHCD, VENUS IS NOK. PT'S SON IS SUPPORTIVE BUT RESIDES IN [place]. PT DENIES ANY MENTAL HEALTH OR SUBSTANCE ABUSE ISSUES. PT IS ENROLLED IN [facility], SHE INQUIRED ABOUT MEAL DELIVERY. SS TO F/U WITH [facility]. SS TO REMAIN AVAILABLE NEEDED.
[2019-11-10 12:22] VITALS: BP 145/83
--- NOTE | 2019-11-10 13:06 | NUR ---
Nutrition Followup Notes wt: 93.0 kg. Pt`s sleeping with no family by bedside. per records pt s/p abdominal sx Pt with no distress, currently on clear liq diet with inadequate PO of 50% x 4 per RN doc Est Energy needs: 6693-2983 kcals (17-20 kcal/kgBW), Est Protein needs: 86-94 gms/day (1.0-1.1 gm/kgBW). Will continue to monitor and reassess prn. LABS: GLU 148 H, CA 7.7 L GI: Pt had 3 BM on 11/08 per RN doc BS: 14 mod risk Please refer to wound assessment report for full details. PES: 1) Increased nutrient needs r/t pt with no PO intake aeb pt NPO pending swallow eval 2) Obesity r/t energy intake in excess of energy needs aeb 145% IBW and BMI of 30.5 kg/m2 3) Altered nutrition related lab values r/t current medical condition hyperchloremia, hyperglycemia, hypocalcemia, severe hypoalbuminemia Comments Will continue to monitor PO status, skin status, pertinent labs and weight trends. Will f/u in 2-3 days. 1) Gradually advance pt to oral Cardiac 2gNa,lowfat, low [place] diet when medically feasible and as tolerated. 2) If albumin continues trending down, consider Prostat 1 pkt BID. 3) Continue current plan of care
[2019-11-10 17:27] VITALS: BP 139/68
--- NOTE | 2019-11-10 18:10 | NUR ---
Respiratory note: AT BEDSIDE FOR MED NEB TX, PT STATES SHE WOULD RATHER EAT FIRST. WILL RETURN AT A LATER TIME FOR MED NEB TX.
[2019-11-10 19:05] VITALS: BP 139/68
--- NOTE | 2019-11-10 19:29 | NUR ---
ESTUARDO DRAINED EMPTIED AT THIS TIME 50 ML OF SANGUINEOUS DRAINAGE NOTED. DRAIN COMPRESSED AND FUNCTIONING APPROPRIATELY
[2019-11-10 22:00] VITALS: BP 138/73
[2019-11-11 06:21] LABS: Potassium 4.2 mmol/L (3.5-5.1)
[2019-11-11 06:22] LABS: BUN/Creatinine Ratio 10.7; Calcium 8.6 mg/dL (8.5-10.1); Magnesium 1.9 mg/dL (1.6-2.6)
--- NOTE | 2019-11-11 06:37 | NUR ---
END OF SHIFT NOTE WILL ENDORSE PT CARE TO DAY SHIFT RN PT A0X4 NO S/S OF DISTRESS OR SOB
--- NOTE | 2019-11-11 07:20 | NUR ---
ESTUARDO DRAINED EMPTIED AT THIS TIME 50 ML OF SANGUINEOUS DRAINAGE NOTED. DRAIN COMPRESSED AND FUNCTIONING APPROPRIATELY
--- NOTE | 2019-11-11 07:40 | NUR ---
OPENING NOTE ASSUMED CARE OF PATIENT. ALERT AND ORIENTED. NO S/S OF SOB/DISTRESS NOTES. BED SET TO LOWEST POSITION/LOCKED. BEDSIDE RAILS UP X2. CALL LIGHT WITHIN REACH. BED ALARM ON. INSTRUCTED PATIENT TO CALL FOR ASSISTANCE. UPDATED ON POC. PATIENT VERBALIZED UNDERSTANDING. WILL CONTINUE TO MONITOR Q1HR AND PRN.
[2019-11-11 09:00] VITALS: BP 123/88
[2019-11-11] MEDS: SODIUM CHLOR 0.9% PF (SALINE LOCK) 10ML VIAL/SYR IV SCH ×2 (10:00→22:34)
[2019-11-11] MEDS: PANTOPRAZOLE 40 MG/10 ML VIAL INJ IV SCH (10:58)
[2019-11-11] MEDS: FLUCONAZOLE 200MG/100ML 100 ML IV SCH ×2 (10:58→11:00)
[2019-11-11] MEDS: AMIODARONE HCL 200 MG TAB PO SCH ×2 (10:59→22:35)
[2019-11-11 13:00] VITALS: BP 142/69
--- NOTE | 2019-11-11 15:00 | NUR ---
D/C Planning Per consult for home health for physical therapy and toilet seat. Faxed clinical information to [facility] requesting for assistance for home health and DME. Received a call from Yovani with [facility] [phone] advising me [facility] has provided them with authorization for medical equipment and they will deliver 3 in 1 bedside commode to patient home. Placed called to [facility] spoke to AMARILIS Cassidy. Per [facility] [phone] has accepted patient and patient will be seen within 24-48hrs upon d/c day
--- NOTE | 2019-11-11 16:32 | NUR ---
Cordero catheter dc'd Order to discontinue Cordero catheter. Cordero dc'd with clean technique following deflation of balloon. Patient tolerated well with no complaints of pain. Continue care. 900 ML urine output.
--- NOTE | 2019-11-11 16:35 | NUR ---
ESTUARDO DRAIN ESTUARDO DRAIN EMPTIED, 50ML SANGUINEOUS.
[2019-11-11 16:52] VITALS: BP 123/66
[2019-11-11 17:42] LABS: Basophils # (auto) 0.1 10 ^3/uL (0-0.2); Basophils % (auto) 0.8 % (0.0-2.0); Eosinophils # (auto) 0.4 10 ^3/uL (0-0.8); Eosinophils % (auto) 3.9 % (0.0-7.0); Hematocrit 35.4 % (36.0-46.0); Hemoglobin 11.2 g/dL (12.2-16.2); Lymphocytes # (auto) 0.7 10 ^3/uL (0.4-5.4); Lymphocytes % (auto) 5.9 % (10.0-50.0); Mean Corpuscular Hemoglobin 29.5 pg (28.0-32.0); Mean Corpuscular Hgb Conc. 31.6 g/dL (32.0-36.0); Mean Corpuscular Volume 93.4 fL (80.0-100.0); Monocytes # (auto) 1.2 10 ^3/uL (0-1.3); Monocytes % (auto) 10.2 % (0.0-12.0); Neutrophils % (auto) 79.2 % (37.0-80.0); Nucleated Red Blood Cells % 0.3 %; Platelet Count (auto) 340 10^3/uL (140-450); Red Blood Cells 3.79 10^6/uL (4.0-5.20); Red Cell Distribution Width 16.1 % (11.8-14.3); White Blood Cell 11.4 10^3/uL (4.4-10.8)
--- NOTE | 2019-11-11 18:19 | NUR ---
MD PER DR. SANCHEZ PATIENT IS CLEARED FOR DISCHARGE FROM CARDIOLOGY STANDPOINT.
--- NOTE | 2019-11-11 19:25 | NUR ---
Opening Shift Note Assumed care of patient. Patient sitting supine in bed, AOx4. No S/S of distress/SOB or pain. Bed locked in lowest position, HOB at 30 degrees, side rails up x2, and call light within reach. Instructed on POC and to call for assist PRN, will continue to monitor for changes Q1hr and PRN .
--- NOTE | 2019-11-11 21:00 | NUR ---
ESTUARDO Drain serosanguineous at 25 mls.
[2019-11-11 21:53] VITALS: BP 159/75
[2019-11-11] MEDS: HYDROcodone-ACET 5/325MG TAB PO PRN (23:38)
--- NOTE | 2019-11-11 23:38 | NUR ---
Patient complains of Left sided neck pain Patient said "I may have pulled something while moving." Pain medication was given as prescribed. Will continue to monitor.
--- NOTE | 2019-11-12 00:13 | NUR ---
PT ASSESSED FOR PRN MED NEB TX. SPO2 95% ON 4L NC, HR 77. PT DENIES ANY RESPIRATORY DISTRESS. NO TX INDICATED AT THIS TIME. PT IS AWARE TO HAVE RT PAGED IF TX NEEDED.
--- NOTE | 2019-11-12 01:00 | NUR ---
ESTUARDO DRAINED EMPTIED AT THIS TIME 50 ML OF SANGUINEOUS DRAINAGE NOTED. DRAIN COMPRESSED AND FUNCTIONING APPROPRIATELY Addendum: 11/12/19 at 1345 by VENUS MILLIGAN RN RN TIME OF NOTE AT 1300
[2019-11-12 04:56] VITALS: BP 129/62
--- NOTE | 2019-11-12 06:03 | NUR ---
Respiratory note: PT ASSESSED FOR PRN TX. HR 69, RR 20 , POX 99% ON 2L NC, BS ARE CLEAR. NO SOB OR DISTRESS NOTED AT THIS TIME. PT NOTIFY TO HAVE RT PAGE FOR TX.
--- NOTE | 2019-11-12 07:30 | NUR ---
OPENING NOTE Assumed responsibility of patient at 0700. Respiratory sounds clear, equal bilaterally and unlabored. Assisted patient with using the bedside commode. No complaints of pain at this time. Bed locked in lowest position, side rails up x 3, HOB elevated at least 30 degrees and call light within reach. Will continue to monitor.
[2019-11-12 08:44] VITALS: BP 135/78
[2019-11-12] MEDS: SODIUM CHLOR 0.9% PF (SALINE LOCK) 10ML VIAL/SYR IV SCH ×2 (10:00→22:37)
[2019-11-12] MEDS: AMIODARONE HCL 200 MG TAB PO SCH ×2 (10:23→22:37)
[2019-11-12] MEDS: FLUCONAZOLE 200MG/100ML 100 ML IV SCH ×2 (10:23→13:37)
[2019-11-12] MEDS: PANTOPRAZOLE 40 MG/10 ML VIAL INJ IV SCH (10:23)
--- NOTE | 2019-11-12 11:12 | NUR ---
SPOKE WITH DR. SMITH. HE IS OKAY WITH THE PATIENT GOING HOME WITH THE DRAIN. HE WANTS HER TO FOLLOW UP WITH HIM IN A WEEK.
[2019-11-12 13:00] VITALS: BP 142/76
--- NOTE | 2019-11-12 14:05 | NUR ---
SPOKE WITH [facility] TO SET UP A RIDE FOR THE PATIENT TO GET HOME. I WAS TOLD TO CALL BACK LATER TO FOLLOW UP ON A TIME OF ARRIVAL.
--- NOTE | 2019-11-12 14:15 | NUR ---
FOLLOW UP WITH [facility]. THERE ARE STILL NO RIDES AVAILABLE FOR THE PATIENT AT THIS TIME. I WILL CONTINUE TO FOLLOW UP.
--- NOTE | 2019-11-12 15:25 | NUR ---
NO DRIVERS TO ACCEPT THE TRIP AT THIS TIME.
[2019-11-12 16:12] VITALS: BP 144/67
--- NOTE | 2019-11-12 17:50 | NUR ---
CALLED [facility] AND THEY SAID THEY WERE HAVING A DIFFICULT TIME FINDING A AIR CONDITIONING SPECIALIST TO PICK THIS PATIENT UP. WHILE HOLDING ON THE LINE DR. DUPONT CALLED. HE ORDER TO HOLD THE DISCHARGE UNTIL TOMORROW BECAUSE FINDING A RIDE IS DIFFICULT AT THIS TIME. SO HE SAID WE WILL DO PHYSICAL THERAPY TOMORROW AND ARRANGE FOR HER TO GO HOME TOMORROW.
--- NOTE | 2019-11-12 19:25 | NUR ---
Opening shift note Assumed care of patient who is A&Ox4, respirations even and non-labored with no s/s of distress. Discussed POC with patient who verbalized understanding. Abdominal dressings CDI, ESTUARDO drain patent, removed 15 mL of serosanguineous fluid. Educated the patient on how to drain the ESTUARDO drain, patient observed and verbalized understanding. Bed in lowest locked position with 2 side rails up. Call light within reach, will continue to monitor.
[2019-11-12 22:00] VITALS: BP 140/78
--- NOTE | 2019-11-12 22:00 | NUR ---
ESTUARDO DRAIN Removed 15 mL of serosanguineous fluid from ESTUARDO drain.
[2019-11-12] MEDS: HYDROcodone-ACET 5/325MG TAB PO PRN (22:38)
--- NOTE | 2019-11-12 22:45 | NUR ---
Pain Patient c/o 5/10 left shoulder pain. Administered 5/325 [place] per EMAR. Will continue to monitor.
--- NOTE | 2019-11-12 23:41 | NUR ---
Pain reassessed Patient sleeping with respirations even and non-labored, no s/s of distress at this time. Will continue to monitor.
--- NOTE | 2019-11-13 01:29 | NUR ---
TELEMETRY BOXED CHANGED Telemetry box 3 exchanged for box 34. Box 3 sent back to ICU.
[2019-11-13 05:00] VITALS: BP 137/71
[2019-11-13 06:31] LABS: Basophils # (auto) 0.1 10 ^3/uL (0-0.2); Basophils % (auto) 0.9 % (0.0-2.0); Eosinophils # (auto) 0.4 10 ^3/uL (0-0.8); Eosinophils % (auto) 5.1 % (0.0-7.0); Hematocrit 30.9 % (36.0-46.0); Hemoglobin 10.3 g/dL (12.2-16.2); Lymphocytes # (auto) 0.7 10 ^3/uL (0.4-5.4); Lymphocytes % (auto) 9.3 % (10.0-50.0); Mean Corpuscular Hemoglobin 30.7 pg (28.0-32.0); Mean Corpuscular Hgb Conc. 33.4 g/dL (32.0-36.0); Mean Corpuscular Volume 91.7 fL (80.0-100.0); Monocytes # (auto) 1.2 10 ^3/uL (0-1.3); Monocytes % (auto) 15.4 % (0.0-12.0); Neutrophils # (auto) 5.4 10 ^3/uL (1.6-8.6); Neutrophils % (auto) 69.3 % (37.0-80.0); Platelet Count (auto) 294 10^3/uL (140-450); Red Blood Cells 3.37 10^6/uL (4.0-5.20); Red Cell Distribution Width 15.6 % (11.8-14.3); White Blood Cell 7.8 10^3/uL (4.4-10.8)
[2019-11-13 06:49] LABS: Calcium 8.2 mg/dL (8.5-10.1); Potassium 3.5 mmol/L (3.5-5.1)
--- NOTE | 2019-11-13 07:24 | NUR ---
Closing shift note Patient resting, respirations even and non-labored with no s/s of distress. Endorsed care to day RNMiguel.
--- NOTE | 2019-11-13 07:30 | NUR ---
Opening Shift Note Assumed care of patient, awake and alert. No S/S of distress/SOB or pain. Instructed on POC and to call for assist PRN, will continue to monitor for changes Q1hr and PRN.
--- NOTE | 2019-11-13 08:58 | NUR ---
called [facility] to arrange transportation. they said they were approved and they will contact me with the transport eta.
[2019-11-13 09:20] VITALS: BP 139/85
--- NOTE | 2019-11-13 09:55 | NUR ---
Respiratory note: Assessed pt for prn medneb tx. HR 74, RR 14, SPO2 98% on 3lpm nasal cannula. Breath sounds clear t/o, pt denies any SOB, resting comfortably in bed with no s/s of respiratory distress noted. Medneb tx not indicated at this time. Advised pt to call for RT if needed.
[2019-11-13] MEDS: FLUCONAZOLE 200MG/100ML 100 ML IV SCH ×2 (10:20→11:15)
[2019-11-13] MEDS: PANTOPRAZOLE 40 MG/10 ML VIAL INJ IV SCH (10:20)
[2019-11-13] MEDS: SODIUM CHLOR 0.9% PF (SALINE LOCK) 10ML VIAL/SYR IV SCH (10:20)
[2019-11-13] MEDS: AMIODARONE HCL 200 MG TAB PO SCH (10:20)
--- NOTE | 2019-11-13 12:00 | NUR ---
Nutrition Followup Notes wt: 83.4 kg Pt`s sleeping with no family by bedside. per records pt s/p abdominal sx Pt with no distress, now advanced to cardiac diet with adequate PO of 75% x3 per RN doc Est Energy needs: 0516-2910 kcals (17-20 kcal/kgBW), Est Protein needs: 86-94 gms/day (1.0-1.1 gm/kgBW). Will continue to monitor and reassess prn. LABS: CO2 33 H, CA 8.2 L GI: Pt had 2 BM today per RN doc BS: 14 mod risk Please refer to wound assessment report for full details. PES: 1) Increased nutrient needs r/t pt with no PO intake aeb pt NPO pending swallow eval 2) Obesity r/t energy intake in excess of energy needs aeb 145% IBW and BMI of 30.5 kg/m2 3) Altered nutrition related lab values r/t current medical condition hyperchloremia, hyperglycemia, hypocalcemia, severe hypoalbuminemia Comments Will continue to monitor PO status, skin status, pertinent labs and weight trends. Will f/u in 3-5 days. 1) If albumin continues trending down, consider Prostat 1 pkt BID. 2) Continue current plan of care
--- NOTE | 2019-11-13 12:44 | NUR ---
spoke with arin from [facility]. she said that she would call for transportation and get the patient a ride home.
--- NOTE | 2019-11-13 14:15 | NUR ---
Discharge instructions given as ordered. Encourage to follow up with PMD as instructed. All questions and concerns addressed. Patient verbalized understanding. IV removed with catheter intact, pressure dressing applied. Telemetry unit returned to ICU. Patient taken to [facility] that was provided by [facility] via wheelchair with all personal belongings, accompanied by staff and family member. No distress noted at time of departure.
== END 2019-11-13 14:15 | disposition home or self-care (01) | DRG 799 ==
LOC: EDBD 01:03 → ER 01:03 → TELE 01:04 → DOU IN ICU 09:20 → TELE-EAST 11-08 20:20 → TELE-CENTR 11-12 16:55
PROVIDERS: ADMIT Nurse Practitioner; ATTEND Internal Medicine Geriatric Medicine
PROC: 02HV33Z Insertion of Infusion Device into Superior Vena Cava, Percutaneous Approach (ICD-10-PCS; 2019-11-03)
PROC: 30233K1 Transfusion of Nonautologous Frozen Plasma into Peripheral Vein, Percutaneous Approach (ICD-10-PCS; 2019-11-04)
PROC: 30233N1 Transfusion of Nonautologous Red Blood Cells into Peripheral Vein, Percutaneous Approach (ICD-10-PCS; 2019-11-04)
PROC: 30233R1 Transfusion of Nonautologous Platelets into Peripheral Vein, Percutaneous Approach (ICD-10-PCS; 2019-11-04)
PROC: 5A1945Z Respiratory Ventilation, 24-96 Consecutive Hours (ICD-10-PCS; 2019-11-04)
PROC: 07TP0ZZ Resection of Spleen, Open Approach (ICD-10-PCS; 2019-11-04)
PROC: 0BH17EZ Insertion of Endotracheal Airway into Trachea, Via Natural or Artificial Opening (ICD-10-PCS; 2019-11-04)
PROC: 0W9G00Z Drainage of Peritoneal Cavity with Drainage Device, Open Approach (ICD-10-PCS; 2019-11-04)
PROC: 06HM33Z Insertion of Infusion Device into Right Femoral Vein, Percutaneous Approach (ICD-10-PCS; 2019-11-04)
PROC: 30233L1 Transfusion of Nonautologous Fresh Plasma into Peripheral Vein, Percutaneous Approach (ICD-10-PCS; principal; 2019-11-04 11:38)
DX: S36.032A Major laceration of spleen, initial encounter (principal); K66.1 Hemoperitoneum; N17.0 Acute kidney failure with tubular necrosis; R57.8 Other shock; J96.00 Acute respiratory failure, unspecified whether with hypoxia or hypercapnia; E87.2 Acidosis; N39.0 Urinary tract infection, site not specified; I48.20 Chronic atrial fibrillation, unspecified; I13.0 Hypertensive heart and chronic kidney disease with heart failure and stage 1 through stage 4 chronic kidney disease, or unspecified chronic kidney disease; I50.42 Chronic combined systolic (congestive) and diastolic (congestive) heart failure; D72.829 Elevated white blood cell count, unspecified; E87.6 Hypokalemia; N18.9 Chronic kidney disease, unspecified; E83.42 Hypomagnesemia; W19.XXXA Unspecified fall, initial encounter; M47.9 Spondylosis, unspecified; M48.02 Spinal stenosis, cervical region; R34 Anuria and oliguria; I49.5 Sick sinus syndrome; I25.10 Atherosclerotic heart disease of native coronary artery without angina pectoris; I48.91 Unspecified atrial fibrillation; E11.22 Type 2 diabetes mellitus with diabetic chronic kidney disease; E78.5 Hyperlipidemia, unspecified; Z95.1 Presence of aortocoronary bypass graft; Z90.11 Acquired absence of right breast and nipple; Z79.899 Other long term (current) drug therapy; Z90.49 Acquired absence of other specified parts of digestive tract; Z79.01 Long term (current) use of anticoagulants; Z85.3 Personal history of malignant neoplasm of breast
CPT/HCPCS: 36415; 36569; 36600; 70450; 71045; 72125; 74176; 80048; 80053; 80061; 80202; 81001; 82150; 82805; 82962; 83036; 83605; 83690; 83735; 83880; 84132; 84443; 84484; 85007; 85014; 85018; 85025; 85027; 85379; 85610; 85730; 86850; 86900; 86901; 86920; 87040; 87070; 87077; 87081; 87086; 87205; 87493; 93005; 93306; 93886; 93970; 94002; 94003; 94640; 96361; 96365; 96366; 96368; 96375; 99291; C9113; C9132; G0378; J0330; J0690; J0696; J1100; J1450; J1815; J2250; J2405; J2543; J3480; J7060